=== PATIENT | male | born 1955 | race Caucasian/White ===

== ENCOUNTER 2018-05-04 07:04 | Inpatient (IN) ==
[2018-05-04 07:10] VITALS: BMI 31.5
--- NOTE | 2018-05-04 07:43 | DR.ABDMALE ---
HPI - Time seen Time seen: 07:45 - PCP Primary Care Physician: NFD - Complaint Chief Complaint:: PT C/O INTERMITTANT LEFT GROIN PAIN AND PT THINKS IT MAY BE HIS ULCER, PT C/O N/V TIMES 3 IN 24 HOURS NO BLOOD NOTED ,,BR PT DENIES FEVER AND C/O CHILLS,,, BR Self Treatment fo Chief Complaint: NEXIUM - Reviewed Nurses Notes Review: Yes - Mode of arrival Mode of Arrival: Ambulatory - Timing Onset of Chief Complaint: 05/03/18 Came on: Suddenly - Duration Duration: Constant Duration: Hours - Location Location: [facility] - Severity Severity: Moderate - Quality Quality: Sharp - Context Onset: Suddenly History of: None - Modifying factors Worsening Factors: Nothing Improving Factors: Nothing - Associated signs and symptoms Associated Signs and Symptoms: Nausea, Vomiting <TOBIAS SIDHU - Last Filed: 05/04/18 07:59> PMH - PMH Past Medical History: No Past Surgical History: No Surgical History: OTH - Family History History of Family Medical Conditions: No Family Medical History: Diabetes Mellitus - Social History Does patient currently use any type of tobacco product: Yes Have you used tobacco products in the last 12 months: Yes Type of Tobacco Use: Cigarettes How many years tobacco product used: 55 Does any household member use tobacco: No Alcohol Use: None Do you use any recreational Drugs:: No Lives With: Mom Lives Where: Home - infectious screening In the last 2 months have you had wt loss of >10#?: NO Have you had fever, night sweats or hemotysis?: No Have you traveled outside the country in the last 6 months?: No Isolation: Standard <TOBIAS SIDHU - Last Filed: 05/04/18 07:59> ROS - Review of Systems Constitutional: No Symptoms Reported Eyes: No Symptoms Reported ENTM: No Symptoms Reported Respiratoy: No Symptoms Reported Cardiovascular: No Symptoms Reported Gastrointestinal/Abdominal: Abdominal Pain, Nausea, Vomiting. negative: Constipation, Diarrhea Genitourinary: No Symptoms Reported. negative: Dysuria, Frequency, Hematuria Neurological: No Symptoms Reported Musculoskeletal: No Symptoms Reported Integumentary: No Symptoms Reported Hematologic/Lymphatic: No Symptoms Reported Endocrine: No Symptoms Reported All Other Systems: Reviewed and Negative <TOBIAS SIDHU - Last Filed: 05/04/18 07:59> PE - General Limitations: No Limitations General Appearance: Alert - Head Head Exam: Normal Inspection - Eyes Eye exam: Normal Appearance - ENT ENT Exam: Normal External Ear Exam - Neck Neck Exam: Trachea Midline - Chest Chest Inspection: Symmetric Chest Wall Rise - Respiratory Respiratory Exam: Normal Lung Sounds Bilat Respiratory Exam: Bilateral Clear to Auscultation - Cardiovascular Cardiovascular Exam: Regular Rate, Normal Rhythm, Normal Heart Sounds - Abdominal Exam Abdominal Exam: Normal Bowel Sounds, Soft, Tenderness Abdominal Tenderness: LLQ, Moderate - Rectal Rectal Exam: Deferred - Back Back Exam: Normal Inspection - Extremeties Extremities Exam: Normal Inspection - Exam: Male: Normal Inspection - Neurologic Neurological Exam: Alert, Oriented X3. negative: CN II-XII Intact, Motor Sensory Deficit - Psychiatric Psychiatric Exam: Normal Affect, Normal Mood - Skin Skin Exam: Normal Color <TOBIAS SIDHU - Last Filed: 05/04/18 07:59> - Vital Signs Vital Signs: Temp Pulse Resp BP Pulse Ox 05/04/18 07:06 96.9 F L 120 H 20 182/84 94 L 11/29/12 21:36 166/89 MDM - Additional Information Obtained From Additional information provided by: Family - Differential Diagnosis Differential Diagnosis: Constipation, Diverticular disease, Gastritus/PUD, Hernia, Pancreatitis, Urinary tract infection, Urolithiasis <TOBIAS SIDHU - Last Filed: 05/04/18 07:59> Course - Treatment Treatment: SEE ORDERS. <TOBIAS SIDHU - Last Filed: 05/04/18 07:59> - Consultation Called: 09:10 (Dr Krishnamurthy admitted) <ARIANNA BUSTILLOS - Last Filed: 05/04/18 09:14> ROR - Labs Reviewed Result Diagrams: 05/04/18 08:07 05/04/18 08:07 <ARIANNA BUSTILLOS - Last Filed: 05/04/18 09:14> - Labs Reviewed Laboratory: WBC 11.8 X10^3/uL (3.6-10.0) H 05/04/18 08:07 RBC 5.13 X10^6/uL (4.7-6.0) 05/04/18 08:07 Hgb 14.2 g/dL (13.5-18.0) 05/04/18 08:07 Hct 41.8 % (42.0-54.0) L 05/04/18 08:07 MCV 81.6 fL (80.0-100.0) 05/04/18 08:07 MCH 27.7 pg (27.0-34.0) 05/04/18 08:07 MCHC 34.0 g/dL (33.0-35.0) 05/04/18 08:07 RDW 14.5 % (11.6-16.5) 05/04/18 08:07 Plt Count 229 X10^3/uL (150.0-450.0) 05/04/18 08:07 Plt Count Comment Adequate (ADEQUATE) 05/04/18 08:07 MPV 7.7 fL (7.4-11.0) 05/04/18 08:07 Neut % (Auto) 95.3 % (42.0-75.0) H 05/04/18 08:07 Lymph % (Auto) 2.7 % (21.0-51.0) L 05/04/18 08:07 [place] % (Auto) 1.7 % (0.0-13.0) 05/04/18 08:07 Eos % (Auto) 0.2 % (0.9-2.9) L 05/04/18 08:07 Baso % (Auto) 0.1 % (0.2-1.0) L 05/04/18 08:07 Neut # (Auto) 11.2 x10^3/uL (2.2-4.8) H 05/04/18 08:07 Lymph # (Auto) 0.3 X10^3/uL (1.3-2.9) L 05/04/18 08:07 [place] # (Auto) 0.2 x10^3/uL (0.3-0.8) L 05/04/18 08:07 Eos # (Auto) 0.0 x10^3/uL (0.0-0.2) 05/04/18 08:07 Baso # (Auto) 0.0 X10^3/uL (0.0-0.1) 05/04/18 08:07 Absolute Nucleated RBC 0.0 /100WBC 05/04/18 08:07 Total Counted 100 05/04/18 08:07 Neutrophils % (Manual) 84 % (39-76) H 05/04/18 08:07 Band Neutrophils % 7 % (0-10) 05/04/18 08:07 Lymphocytes % (Manual) 3 % (13-43) L 05/04/18 08:07 Monocytes % (Manual) 6 % (4-9) 05/04/18 08:07 Plt Morphology Comment Normal (NORMAL) 05/04/18 08:07 RBC Morphology Normal (NORMAL) 05/04/18 08:07 Sodium 135 mmol/L (136-145) L 05/04/18 08:07 Corrected Sodium 136 mmol/L (136-145) 05/04/18 08:07 Potassium 3.8 mmol/L (3.5-5.1) 05/04/18 08:07 Chloride 100 mmol/L (98-107) 05/04/18 08:07 Carbon Dioxide 23.5 mmol/L (21-32) 05/04/18 08:07 BUN 8 mg/dL (7-18) 05/04/18 08:07 Creatinine 1.47 mg/dL (0.70-1.30) H 05/04/18 08:07 Est GFR (MDRD) Af Amer > 60 (>60) 05/04/18 08:07 Est GFR (MDRD) Non-Af 51 (>60) L 05/04/18 08:07 Glucose 125 mg/dL (65-99) H 05/04/18 08:07 Calcium 9.0 mg/dL (8.5-10.1) 05/04/18 08:07 Corrected Calcium TNP 05/04/18 08:07 Total Bilirubin 0.40 mg/dL (0.2-1.0) 05/04/18 08:07 AST 22 Units/L (15-37) 05/04/18 08:07 ALT 18 Units/L (12-78) 05/04/18 08:07 Alkaline Phosphatase 93 Units/L (46-116) 05/04/18 08:07 Total Protein 7.4 g/dL (6.4-8.2) 05/04/18 08:07 Albumin 3.6 g/dL (3.4-5.0) 05/04/18 08:07 Globulin 3.8 g/dL (2.5-4.5) 05/04/18 08:07 Albumin/Globulin Ratio 0.9 Ratio (1.1-2.1) L 05/04/18 08:07 Amylase 32 Units/L (25-115) 05/04/18 08:07 Lipase 101 Units/L (73-393) 05/04/18 08:07 Specimen Type Random urine 05/04/18 08:02 Urine Color Yellow (YELLOW) 05/04/18 08:02 Urine Appearance Slightly hazy (CLEAR) 05/04/18 08:02 Urine pH 5.0 (5.0 - 8.0) 05/04/18 08:02 Ur Specific [place] 1.020 (1.000-1.030) 05/04/18 08:02 Urine Protein 2+ (NEGATIVE) 05/04/18 08:02 Urine Glucose (UA) Negative (NEGATIVE) 05/04/18 08:02 Urine Ketones Negative (NEGATIVE) 05/04/18 08:02 Urine Occult Blood 2+ (NEGATIVE) 05/04/18 08:02 Urine Nitrite Negative (NEGATIVE) 05/04/18 08:02 Urine Bilirubin Negative (NEGATIVE) 05/04/18 08:02 Urine Urobilinogen Normal (NORMAL) 05/04/18 08:02 Ur Leukocyte Esterase 1+ (NEGATIVE) 05/04/18 08:02 Urine RBC 0-2 /HPF (NONE SEEN) 05/04/18 08:02 Urine WBC 0-2 /HPF (NONE SEEN) 05/04/18 08:02 Ur Squamous Epith Cells Rare /HPF (NEGATIVE) 05/04/18 08:02 Urine Bacteria Trace /HPF (NEGATIVE) 05/04/18 08:02 Urine Mucus Few /HPF (NEGATIVE) 05/04/18 08:02 Ur Culture Indicated? No/not indicated 05/04/18 08:02 <TOBIAS SIDHU - Last Filed: 05/04/18 07:59> <ARIANNA BUSTILLOS - Last Filed: 05/04/18 09:14> - Diagnosis Discharge Problem: Diverticulitis large intestine Qualifiers: Diverticulitis bleeding: without bleeding Diverticulitis complication: without perforation or abscess Qualified Code(s): K57.32 - Diverticulitis of large intestine without perforation or abscess without bleeding - Discharge Plan Disposition: ADMITTED INPATIENT Condition: Stable - Follow ups/Referrals Follow ups/Referrals: NFD,None [Primary Care Provider] - 3 days - Instructions
[2018-05-04 08:14] LABS: BILIRUBIN,URINE NEGATIVE (NEGATIVE); BLOOD/HEMOGLOBIN,URINE 2+ (NEGATIVE); GLUCOSE, URINE NEGATIVE (NEGATIVE); KETONES,URINE NEGATIVE (NEGATIVE); LEUKOCYTE ESTERASE ,URINE 1+ (NEGATIVE); NITRITES,URINE NEGATIVE (NEGATIVE); PROTEIN,URINE 2+ (NEGATIVE); UROBILINOGEN,URINE NORMAL (NORMAL)
[2018-05-04 08:16] LABS: APPEARANCE,URINE SLIGHTLY HAZY (CLEAR); COLOR,URINE YELLOW (YELLOW)
[2018-05-04 08:20] LABS: BACTERIA,URINE TRACE /HPF (NEGATIVE); RBC,URINE 0-2 /HPF (NONE SEEN); SQUAMOUS EPITHELIAL CELL,UR RARE /HPF (NEGATIVE)
[2018-05-04 08:21] LABS: MUCUS,URINE FEW /HPF (NEGATIVE)
[2018-05-04 08:21] LABS: BASOPHILS % (AUTO) 0.1 % (0.2-1.0); EOSINOPHILS % (AUTO) 0.2 % (0.9-2.9); HEMATOCRIT 41.8 % (42.0-54.0); HEMOGLOBIN 14.2 g/dL (13.5-18.0); LYMPHOCYTES # (AUTO) 0.3 X10^3/uL (1.3-2.9); LYMPHOCYTES % (AUTO) 2.7 % (21.0-51.0); MEAN CORPUSCULAR HEMOGLOBIN 27.7 pg (27.0-34.0); MEAN CORPUSCULAR VOLUME 81.6 fL (80.0-100.0); MEAN PLATELET VOLUME 7.7 fL (7.4-11.0); MONOCYTES # (AUTO) 0.2 x10^3/uL (0.3-0.8); MONOCYTES % (AUTO) 1.7 % (0.0-13.0); NEUTROPHILS # (AUTO) 11.2 x10^3/uL (2.2-4.8); NEUTROPHILS % (AUTO) 95.3 % (42.0-75.0); PLATELET COUNT 229 X10^3/uL (150.0-450.0); RED BLOOD COUNT 5.13 X10^6/uL (4.7-6.0); RED CELL DISTRIBUTION WIDTH 14.5 % (11.6-16.5); WHITE BLOOD COUNT 11.8 X10^3/uL (3.6-10.0)
[2018-05-04 08:32] LABS: BAND NEUTROPHILS % 7 % (0-10); PLATELET MORPHOLOGY COMMENT NORMAL (NORMAL)
[2018-05-04 08:35] LABS: ALANINE AMINOTRANSFERASE 18 Units/L (12-78); ALBUMIN 3.6 g/dL (3.4-5.0); ALKALINE PHOSPHATASE 93 Units/L (46-116); AMYLASE 32 Units/L (25-115); ASPARTATE AMINO TRANSFERASE 22 Units/L (15-37); BLOOD UREA NITROGEN 8 mg/dL (7-18); CARBON DIOXIDE 23.5 mmol/L (21-32); CHLORIDE 100 mmol/L (98-107); COR NA(FOR HYPERGLY) 136 mmol/L (136-145); CREATININE 1.47 mg/dL (0.70-1.30); LIPASE 101 Units/L (73-393); SODIUM 135 mmol/L (136-145); TOTAL PROTEIN 7.4 g/dL (6.4-8.2); eGFR NON BLACK RACES 51 (>60)
--- NOTE | 2018-05-04 08:54 | CT ---
HISTORY: Left-sided abdominal pain; vomiting; chills Study: CT abdomen and pelvis without IV or oral contrast Comparison: No priors Technique: Multiple axial images of the abdomen and pelvis were obtained from the lung bases to the pubic symphy sis without the administration of IV or oral contrast. Coronal and sagittal images are also reviewed . Dose reduction techniques utilized automatic exposure control. Findings: The visualized portions of the lung bases are unremarkable. There are right and left coronary artery calcifications. The liver, spleen, kidneys, and adrenal glands are unremarkable in their CT appearan ce. Punctate calcifications are present throughout the pancreas. No evidence of pancreatic mass or du ctal ectasia is seen. Findings may represent chronic calcific pancreatitis. The gallbladder is unrema rkable in its CT appearance. No significant mesenteric lymphadenopathy or stranding can be observed. No free fluid or free air is seen within the abdomen. No bowel wall thickening or bowel dilatation is present. Appendix is normal. There is pericolonic fat reticulation present in a region of diverti culum formation at the left junction of the descending and sigmoid colon. This has the appearance of mild but active diverticulitis. No evidence of fluid collection, abscess or perforation or obstructio n is seen.. The urinary bladder is grossly unremarkable. Severe multilevel degenerative disc disease is present involving the lumbar spine with disc space narrowing, vacuum disc, marginal spondylosis a nd bony endplate sclerosis. IMPRESSION: Mild but active appearing diverticulitis at the junction of the descending colon and sigmoid. No obst ruction, perforation, fluid collection or abscess is seen. Reported By:
[2018-05-04] MEDS ORDERED: NS 1000 ML 1,000 ML ONE (09:20)
[2018-05-04] MEDS ORDERED: NS 100 ML IV 100 ML IV ONE (09:22)
[2018-05-04] MEDS ORDERED: ZOSYN VIAL 3.375 GRAMS IV ONE (09:22)
[2018-05-04] MEDS ORDERED: NS 1000 ML 1,000 ML IV ONE (09:35)
[2018-05-04] MEDS ORDERED: ZOFRAN INJ 4 MG VIAL IVP PRN (09:38)
[2018-05-04] MEDS: ZOSYN VIAL 3.375 GRAMS 3.375 G in NS 100 ML IV + SPIKE MINIBAG* 100 ML IV SCH ×3 (09:53→20:43)
[2018-05-04] MEDS: NS 1000 ML 1,000 ML with POTASSIUM CHLORIDE INJ 30 MEQ VIAL 30 MEQ IV SCH ×4 (11:40→17:59)
[2018-05-04] MEDS: DEMEROL INJ IVP PRN (20:50)
[2018-05-04 22:23] LABS: BILIRUBIN,URINE NEGATIVE (NEGATIVE); BLOOD/HEMOGLOBIN,URINE 2+ (NEGATIVE); GLUCOSE, URINE NEGATIVE (NEGATIVE); KETONES,URINE NEGATIVE (NEGATIVE); LEUKOCYTE ESTERASE ,URINE NEGATIVE (NEGATIVE); NITRITES,URINE NEGATIVE (NEGATIVE); PROTEIN,URINE NEGATIVE (NEGATIVE); UROBILINOGEN,URINE NORMAL (NORMAL)
[2018-05-04 22:34] LABS: APPEARANCE,URINE CLEAR (CLEAR); BACTERIA,URINE NEGATIVE /HPF (NEGATIVE); COLOR,URINE YELLOW (YELLOW); RBC,URINE 0-2 /HPF (NONE SEEN); SQUAMOUS EPITHELIAL CELL,UR FEW /HPF (NEGATIVE)
[2018-05-05] MEDS: ZOSYN VIAL 3.375 GRAMS 3.375 G in NS 100 ML IV + SPIKE MINIBAG* 100 ML IV SCH ×4 (03:47→22:45)
[2018-05-05] MEDS: NS 1000 ML 1,000 ML with POTASSIUM CHLORIDE INJ 30 MEQ VIAL 30 MEQ IV SCH ×4 (03:48→10:47)
[2018-05-05] MEDS: DEMEROL INJ IVP PRN ×3 (03:48→18:44)
[2018-05-05 06:38] LABS: BASOPHILS % (AUTO) 0.4 % (0.2-1.0); EOSINOPHILS # (AUTO) 0.3 x10^3/uL (0.0-0.2); EOSINOPHILS % (AUTO) 2.9 % (0.9-2.9); HEMATOCRIT 35.7 % (42.0-54.0); HEMOGLOBIN 12.2 g/dL (13.5-18.0); LYMPHOCYTES # (AUTO) 0.7 X10^3/uL (1.3-2.9); MEAN CORPUSCULAR HGB CONC 34.2 g/dL (33.0-35.0); MEAN CORPUSCULAR VOLUME 81.9 fL (80.0-100.0); MEAN PLATELET VOLUME 8.1 fL (7.4-11.0); MONOCYTES # (AUTO) 0.6 x10^3/uL (0.3-0.8); MONOCYTES % (AUTO) 6.2 % (0.0-13.0); NEUTROPHILS # (AUTO) 8.7 x10^3/uL (2.2-4.8); NEUTROPHILS % (AUTO) 83.5 % (42.0-75.0); PLATELET COUNT 173 X10^3/uL (150.0-450.0); RED BLOOD COUNT 4.35 X10^6/uL (4.7-6.0); RED CELL DISTRIBUTION WIDTH 14.9 % (11.6-16.5); WHITE BLOOD COUNT 10.4 X10^3/uL (3.6-10.0)
[2018-05-05 07:05] LABS: ALANINE AMINOTRANSFERASE 21 Units/L (12-78); ALBUMIN 2.8 g/dL (3.4-5.0); ALKALINE PHOSPHATASE 67 Units/L (46-116); ASPARTATE AMINO TRANSFERASE 22 Units/L (15-37); BLOOD UREA NITROGEN 12 mg/dL (7-18); CALCIUM 8.1 mg/dL (8.5-10.1); CARBON DIOXIDE 23.8 mmol/L (21-32); CHLORIDE 107 mmol/L (98-107); COR CA(FOR HYPOALB) 9.1 mg/dL (8.5-10.1); CREATININE 1.22 mg/dL (0.70-1.30); SODIUM 139 mmol/L (136-145); TOTAL PROTEIN 6.3 g/dL (6.4-8.2); eGFR NON BLACK RACES > 60 (>60)
[2018-05-05] MEDS: CHECK PATCH XX SCH ×2 (09:54→21:00)
[2018-05-05] MEDS: NICOTINE PATCH TD SCH (09:54)
[2018-05-05] MEDS ORDERED: NS 1000 ML 1,000 ML ONE (11:50)
[2018-05-05] MEDS ORDERED: LIBRIUM PO PRN (13:39)
--- NOTE | 2018-05-05 13:48 | DR.H&P ---
H&P - History & Physical for Day of: H&P Date: 05/04/18 - Chief Complaint Chief Complaint: ABDOMINAL PAIN, N/V, CHILLS - History of Present Illness History of Present Illness: 63 WM ER ADMISSION WITH ACUTE ABDOMINAL PAIN, NV AND CHILLS. PT CT ABD PELVIS REVEALED ACUTE DIVERTICULITIS, WITH ELEVATED WBC ON ADMISSION. PT DENIES ANY PMH NO DM OR HTN OR CAD. PT IS PACK PER DAY SMOKER, PT ADMITTED FOR IV ABTX, PAIN AND NAUSEA CONTROL - Past Medical History Past Medical History: COPD - Past Surgical History Surgical History: Other - Family History Family Medical History: Diabetes Mellitus - Social History Does patient currently use any type of tobacco product: Yes Have you used tobacco products in the last 12 months: Yes Type of Tobacco Use: Cigarettes How many years tobacco product used: 48 Does any household member use tobacco: No Alcohol Use: None Drug Use: None - Medications Home Medications: codeine Allergy (Verified 05/04/18 07:06) CONTINUE taking the following medications NK 05/04/18 [History] - Review of Systems Constitutional: Chills ENT: No Symptoms Reported Respiratory: Wheezing Cardiovascular: No Symptoms Reported Gastrointestinal: Nausea, Vomiting, Abdominal Pain Musculoskeletal: Back Pain Skin: No Symptoms Reported Neurological: No Symptoms Reported - Physical Exam Vital Signs: Temperature 98.6 F Pulse Rate [Right Brachial] 76 Pulse Rate [Left Radial] 82 Pulse Rate 120 Respiratory Rate 20 Blood Pressure [Right Arm] 112/67 Blood Pressure [Left Arm] 93/49 Blood Pressure 182/84 O2 Sat by Pulse Oximetry 96 Oriented: Normal Eyes: Normal Ear: Normal Nose: Normal Throat: Normal Respiratory: RLL Diminished, LLL Diminished Cardiovascular: Normal : Normal Auscultation: Bowel Sounds: Increased Palpation: Normal Tenderness: LUQ, LLQ Skin: Decreased [place] Musculoskeletal: Normal Psychiatric: Normal Mood Description: Calm Affect: Angry Speech Pattern: Clear - Assessment/Plan (1) Diverticulitis large intestine Qualifiers: Diverticulitis bleeding: without bleeding Diverticulitis complication: without perforation or abscess Qualified Code(s): K57.32 - Diverticulitis of large intestine without perforation or abscess without bleeding Status: Acute Plan: ADMIT, IV ATBX. ADMISSION LABS CBC CMP AMYLASE AND LIPASE. AM CXR. VERIFY HOME MEDS. NPO, PAIN AND NAUSEA CONTROL - Allergies Allergies/Adverse Reactions: Allergies Allergy/AdvReac Type Severity Reaction Status Date / Time codeine Allergy Verified 05/04/18 07:06
--- NOTE | 2018-05-05 13:51 | PCM.PROG ---
Progress Note - Progress Note for Day of Date of Exam: 05/05/18 - Subjective Subjective: 63 WM ER ADMISSION WITH ACUTE DIVERTICULITIS, CURRENTLY ON IV ZOSYN , ADDING FLAGYL, PT CO PAIN THIS AM. LLQ TENDER. STOOL STUDIES, CXR FOR EXP WHEEZING ON EXAM. - Past Medical Family Social History Past Med/Fam/Surg Hx: No changes since H&P Allergies: Allergies codeine Allergy (Verified 05/04/18 07:06) - Review of Systems ROS: No change since H&P - Vital Signs and I&O's Vital Signs: Temperature 98.6 F Pulse Rate [Right Brachial] 76 Pulse Rate [Left Radial] 82 Pulse Rate 120 Respiratory Rate 20 Blood Pressure [Right Arm] 112/67 Blood Pressure [Left Arm] 93/49 Blood Pressure 182/84 O2 Sat by Pulse Oximetry 96 Intake and Output: Intake & Output 05/03/18 05/04/18 05/05/18 05/06/18 11:59 11:59 11:59 11:59 Intake Total 1000 / 1000 Output Total 650 / 650 Balance 350 / 350 - Physical Exam Oriented: Normal Eyes: Normal Ear: Normal Nose: Normal Throat: Normal Respiratory: Diminished, Wheezes Cardiovascular: Normal : Normal Auscultation: Bowel Sounds: Increased Tenderness: LUQ, LLQ Skin: Decreased [place]urgur Musculoskeletal: Normal Psychiatric: Normal Mood Description: Calm Affect: Angry Speech Pattern: Clear - Laboratory and Diagnostics Result Diagrams: 05/05/18 05:20 05/05/18 05:20 Labs: Laboratory WBC 10.4 X10^3/uL (3.6-10.0) H 05/05/18 05:20 RBC 4.35 X10^6/uL (4.7-6.0) L 05/05/18 05:20 Hgb 12.2 g/dL (13.5-18.0) L D 05/05/18 05:20 Hct 35.7 % (42.0-54.0) L 05/05/18 05:20 MCV 81.9 fL (80.0-100.0) 05/05/18 05:20 MCH 28.0 pg (27.0-34.0) 05/05/18 05:20 MCHC 34.2 g/dL (33.0-35.0) 05/05/18 05:20 RDW 14.9 % (11.6-16.5) 05/05/18 05:20 Plt Count 173 X10^3/uL (150.0-450.0) 05/05/18 05:20 Plt Count Comment Adequate (ADEQUATE) 05/04/18 08:07 MPV 8.1 fL (7.4-11.0) 05/05/18 05:20 Neut % (Auto) 83.5 % (42.0-75.0) H 05/05/18 05:20 Lymph % (Auto) 7.0 % (21.0-51.0) L 05/05/18 05:20 [place] % (Auto) 6.2 % (0.0-13.0) 05/05/18 05:20 Eos % (Auto) 2.9 % (0.9-2.9) 05/05/18 05:20 Baso % (Auto) 0.4 % (0.2-1.0) 05/05/18 05:20 Neut # (Auto) 8.7 x10^3/uL (2.2-4.8) H 05/05/18 05:20 Lymph # (Auto) 0.7 X10^3/uL (1.3-2.9) L 05/05/18 05:20 [place] # (Auto) 0.6 x10^3/uL (0.3-0.8) 05/05/18 05:20 Eos # (Auto) 0.3 x10^3/uL (0.0-0.2) H 05/05/18 05:20 Baso # (Auto) 0.0 X10^3/uL (0.0-0.1) 05/05/18 05:20 Absolute Nucleated RBC 0.1 /100WBC 05/05/18 05:20 Total Counted 100 05/04/18 08:07 Neutrophils % (Manual) 84 % (39-76) H 05/04/18 08:07 Band Neutrophils % 7 % (0-10) 05/04/18 08:07 Lymphocytes % (Manual) 3 % (13-43) L 05/04/18 08:07 Monocytes % (Manual) 6 % (4-9) 05/04/18 08:07 Plt Morphology Comment Normal (NORMAL) 05/04/18 08:07 RBC Morphology Normal (NORMAL) 05/04/18 08:07 Sodium 139 mmol/L (136-145) 05/05/18 05:20 Corrected Sodium TNP 05/05/18 05:20 Potassium 4.0 mmol/L (3.5-5.1) 05/05/18 05:20 Chloride 107 mmol/L (98-107) 05/05/18 05:20 Carbon Dioxide 23.8 mmol/L (21-32) 05/05/18 05:20 BUN 12 mg/dL (7-18) 05/05/18 05:20 Creatinine 1.22 mg/dL (0.70-1.30) 05/05/18 05:20 Est GFR (MDRD) Af Amer > 60 (>60) 05/05/18 05:20 Est GFR (MDRD) Non-Af > 60 (>60) 05/05/18 05:20 Glucose 107 mg/dL (65-99) H 05/05/18 05:20 Calcium 8.1 mg/dL (8.5-10.1) L 05/05/18 05:20 Corrected Calcium 9.1 mg/dL (8.5-10.1) 05/05/18 05:20 Total Bilirubin 0.60 mg/dL (0.2-1.0) 05/05/18 05:20 AST 22 Units/L (15-37) 05/05/18 05:20 ALT 21 Units/L (12-78) 05/05/18 05:20 Alkaline Phosphatase 67 Units/L (46-116) 05/05/18 05:20 Total Protein 6.3 g/dL (6.4-8.2) L 05/05/18 05:20 Albumin 2.8 g/dL (3.4-5.0) L 05/05/18 05:20 Globulin 3.5 g/dL (2.5-4.5) 05/05/18 05:20 Albumin/Globulin Ratio 0.8 Ratio (1.1-2.1) L 05/05/18 05:20 Amylase 32 Units/L (25-115) 05/04/18 08:07 Lipase 101 Units/L (73-393) 05/04/18 08:07 Specimen Type Random urine 05/04/18 22:15 Urine Color Yellow (YELLOW) 05/04/18 22:15 Urine Appearance Clear (CLEAR) 05/04/18 22:15 Urine pH 5.0 (5.0 - 8.0) 05/04/18 22:15 Ur Specific [place] 1.015 (1.000-1.030) 05/04/18 22:15 Urine Protein Negative (NEGATIVE) 05/04/18 22:15 Urine Glucose (UA) Negative (NEGATIVE) 05/04/18 22:15 Urine Ketones Negative (NEGATIVE) 05/04/18 22:15 Urine Occult Blood 2+ (NEGATIVE) 05/04/18 22:15 Urine Nitrite Negative (NEGATIVE) 05/04/18 22:15 Urine Bilirubin Negative (NEGATIVE) 05/04/18 22:15 Urine Urobilinogen Normal (NORMAL) 05/04/18 22:15 Ur Leukocyte Esterase Negative (NEGATIVE) 05/04/18 22:15 Urine RBC 0-2 /HPF (NONE SEEN) 05/04/18 22:15 Urine WBC None seen /HPF (NONE SEEN) 05/04/18 22:15 Ur Squamous Epith Cells Few /HPF (NEGATIVE) 05/04/18 22:15 Urine Bacteria Negative /HPF (NEGATIVE) 05/04/18 22:15 Urine Mucus Few /HPF (NEGATIVE) 05/04/18 08:02 Ur Culture Indicated? No/not indicated 05/04/18 22:15 - Plan (1) Diverticulitis large intestine Status: Acute Qualifiers: Diverticulitis bleeding: without bleeding Diverticulitis complication: without perforation or abscess Qualified Code(s): K57.32 - Diverticulitis of large intestine without perforation or abscess without bleeding Plan: IV ATBX. AM LABS, CXR THIS AM, ADDED FLAGYL AND STOOL STUDIES. VERIFY HOME MEDS. NPO, PAIN AND NAUSEA CONTROL
[2018-05-05] MEDS: FLAGYL IV PREMIX 500 MG BAG 500 MG/100 ML BAG IV SCH ×2 (15:04→20:48)
--- NOTE | 2018-05-05 15:06 | RAD ---
History: Cough Study: Portable upright AP chest Comparison: None Findings: The lungs are clear and the heart and mediastinum are unremarkable. There is no edema or ef fusion or lung consolidation. Impression: No evidence for active cardiopulmonary disease Reported By:
[2018-05-05] MEDS: PROTONIX INJ 40 MG VIAL IVP SCH (15:12)
[2018-05-05] MEDS: NS + KCL 20 MEQ/L 1,000 ML IV SCH (18:33)
[2018-05-06] MEDS: DEMEROL INJ IVP PRN ×4 (01:53→23:50)
[2018-05-06] MEDS: NS + KCL 20 MEQ/L 1,000 ML IV SCH ×4 (01:54→18:41)
[2018-05-06] MEDS: FLAGYL IV PREMIX 500 MG BAG 500 MG/100 ML BAG IV SCH ×4 (04:00→20:43)
--- NOTE | 2018-05-06 06:21 | RAD ---
HISTORY: Left-sided abdominal pain, vomiting and chills. Diverticulitis Study: KUB Comparison: CT scan of the abdomen and pelvis done 05/04/2018. Findings: No evidence of bowel obstruction is seen. There is some thickening of the anderson of the distal descend ing colon in the area of the patient's active diverticulitis. There is no evidence of opaque stone. D egenerative changes present involving the lower lumbar spine. IMPRESSION: Mild wall thickening of the colon in the region of the diverticulitis, the distal descending colon re gion. No obstruction is seen. Reported By:
[2018-05-06 06:28] LABS: BASOPHILS # (AUTO) 0.1 X10^3/uL (0.0-0.1); BASOPHILS % (AUTO) 0.6 % (0.2-1.0); EOSINOPHILS # (AUTO) 0.4 x10^3/uL (0.0-0.2); EOSINOPHILS % (AUTO) 4.2 % (0.9-2.9); HEMATOCRIT 36.1 % (42.0-54.0); HEMOGLOBIN 12.3 g/dL (13.5-18.0); LYMPHOCYTES # (AUTO) 1.2 X10^3/uL (1.3-2.9); LYMPHOCYTES % (AUTO) 12.3 % (21.0-51.0); MEAN CORPUSCULAR HEMOGLOBIN 27.8 pg (27.0-34.0); MEAN CORPUSCULAR HGB CONC 34.1 g/dL (33.0-35.0); MEAN CORPUSCULAR VOLUME 81.5 fL (80.0-100.0); MEAN PLATELET VOLUME 8.1 fL (7.4-11.0); MONOCYTES # (AUTO) 0.7 x10^3/uL (0.3-0.8); MONOCYTES % (AUTO) 7.7 % (0.0-13.0); NEUTROPHILS % (AUTO) 75.2 % (42.0-75.0); PLATELET COUNT 181 X10^3/uL (150.0-450.0); RED BLOOD COUNT 4.43 X10^6/uL (4.7-6.0); RED CELL DISTRIBUTION WIDTH 14.7 % (11.6-16.5); WHITE BLOOD COUNT 9.4 X10^3/uL (3.6-10.0)
[2018-05-06] MEDS: ZOSYN VIAL 3.375 GRAMS 3.375 G in NS 100 ML IV + SPIKE MINIBAG* 100 ML IV SCH ×3 (06:38→21:11)
[2018-05-06 07:08] LABS: ALANINE AMINOTRANSFERASE 18 Units/L (12-78); ALBUMIN 2.8 g/dL (3.4-5.0); ALKALINE PHOSPHATASE 82 Units/L (46-116); ASPARTATE AMINO TRANSFERASE 15 Units/L (15-37); BLOOD UREA NITROGEN 11 mg/dL (7-18); CALCIUM 8.1 mg/dL (8.5-10.1); CARBON DIOXIDE 22.5 mmol/L (21-32); CHLORIDE 103 mmol/L (98-107); COR CA(FOR HYPOALB) 9.1 mg/dL (8.5-10.1); CREATININE 1.19 mg/dL (0.70-1.30); SODIUM 136 mmol/L (136-145); TOTAL PROTEIN 6.6 g/dL (6.4-8.2); eGFR NON BLACK RACES > 60 (>60)
[2018-05-06] MEDS: NICOTINE PATCH TD SCH (09:20)
[2018-05-06] MEDS: CHECK PATCH XX SCH ×2 (09:20→20:43)
[2018-05-06] MEDS: PROTONIX INJ 40 MG VIAL IVP SCH (09:20)
[2018-05-06] MEDS ORDERED: NS 100 ML IV 100 ML IV ONE (14:10)
--- NOTE | 2018-05-06 15:03 | CT ---
CT abdomen and pelvis with contrast Indication: Abdominal pain, diverticulitis Comparison: 05/04/2018 Technique: CT images of the abdomen and pelvis were obtained with IV and oral contrast. Automatic exp osure control was utilized. Findings: There is moderate to advanced lower lumbar spondylosis. No acute osseous abnormality is see n. Mild basilar atelectasis has developed, slightly worse on the left. The liver, gallbladder, spleen, stomach, duodenum, pancreas, adrenals, and kidneys are unremarkable. Scattered colonic diverticula are noted. There is again thickening with adjacent stranding at the ann marie ction of the descending and sigmoid colon. This stranding is mildly worsened, but no discrete collect ion or gross free air is observed. Otherwise, no significant thickening or dilatation of the remainin g lower GI tract. The appendix is normal. Urinary bladder, prostate, and rectum are unremarkable. The re is aortoiliac atherosclerosis, without aneurysm. No free fluid or adenopathy. Impression: Worsened inflammatory stranding from acute diverticulitis at the junction of the descending and sigmo id colon, without evidence for abscess. Mild bibasilar atelectasis. Reported By:
[2018-05-07] MEDS: NS + KCL 20 MEQ/L 1,000 ML IV SCH ×3 (00:56→16:42)
[2018-05-07] MEDS: FLAGYL IV PREMIX 500 MG BAG 500 MG/100 ML BAG IV SCH ×4 (02:50→20:28)
[2018-05-07] MEDS: ZOSYN VIAL 3.375 GRAMS 3.375 G in NS 100 ML IV + SPIKE MINIBAG* 100 ML IV SCH ×3 (05:02→22:36)
[2018-05-07 05:15] LABS: BASOPHILS % (AUTO) 0.5 % (0.2-1.0); EOSINOPHILS # (AUTO) 0.6 x10^3/uL (0.0-0.2); EOSINOPHILS % (AUTO) 6.6 % (0.9-2.9); HEMATOCRIT 39.3 % (42.0-54.0); HEMOGLOBIN 13.5 g/dL (13.5-18.0); LYMPHOCYTES # (AUTO) 1.2 X10^3/uL (1.3-2.9); LYMPHOCYTES % (AUTO) 12.9 % (21.0-51.0); MEAN CORPUSCULAR HEMOGLOBIN 27.9 pg (27.0-34.0); MEAN CORPUSCULAR HGB CONC 34.4 g/dL (33.0-35.0); MEAN CORPUSCULAR VOLUME 81.2 fL (80.0-100.0); MEAN PLATELET VOLUME 8.2 fL (7.4-11.0); MONOCYTES # (AUTO) 0.6 x10^3/uL (0.3-0.8); MONOCYTES % (AUTO) 6.2 % (0.0-13.0); NEUTROPHILS # (AUTO) 6.7 x10^3/uL (2.2-4.8); NEUTROPHILS % (AUTO) 73.8 % (42.0-75.0); PLATELET COUNT 235 X10^3/uL (150.0-450.0); RED BLOOD COUNT 4.84 X10^6/uL (4.7-6.0); RED CELL DISTRIBUTION WIDTH 14.1 % (11.6-16.5); WHITE BLOOD COUNT 9.1 X10^3/uL (3.6-10.0)
[2018-05-07 05:32] LABS: ALANINE AMINOTRANSFERASE 16 Units/L (12-78); ALBUMIN 2.9 g/dL (3.4-5.0); ALKALINE PHOSPHATASE 89 Units/L (46-116); ASPARTATE AMINO TRANSFERASE 17 Units/L (15-37); BLOOD UREA NITROGEN 11 mg/dL (7-18); CALCIUM 8.5 mg/dL (8.5-10.1); CARBON DIOXIDE 23.2 mmol/L (21-32); CHLORIDE 102 mmol/L (98-107); COR CA(FOR HYPOALB) 9.4 mg/dL (8.5-10.1); CREATININE 1.15 mg/dL (0.70-1.30); SODIUM 135 mmol/L (136-145); TOTAL PROTEIN 7.2 g/dL (6.4-8.2); eGFR NON BLACK RACES > 60 (>60)
[2018-05-07] MEDS: PROTONIX INJ 40 MG VIAL IVP SCH (08:37)
[2018-05-07] MEDS: NICOTINE PATCH TD SCH (08:37)
[2018-05-07] MEDS: CHECK PATCH XX SCH ×2 (08:40→20:28)
--- NOTE | 2018-05-07 09:45 | PCM.PROG ---
Progress Note - Progress Note for Day of Date of Exam: 05/06/18 - Subjective Subjective: 63 WM ER ADMISSION WITH ACUTE DIVERTICULITIS, CURRENTLY ON IV ZOSYN , ADDING FLAGYL, PT CO PAIN IMPROVED THIS, BUT CONTINUES LLQ TENDER. STOOL STUDIES. PT NPO FOR REPEAT CT ABD PELVIS WITH CONTRAST THIS AM, CONTINUE NPO - Past Medical Family Social History Past Med/Fam/Surg Hx: No changes since H&P Allergies: Allergies codeine Allergy (Verified 05/04/18 07:06) - Review of Systems ROS: No change since H&P - Vital Signs and I&O's Vital Signs: Temperature 98.4 F Pulse Rate [Right Brachial] 84 Pulse Rate [Left Radial] 82 Pulse Rate 76 Respiratory Rate 20 Blood Pressure [Right Arm] 137/77 Blood Pressure [Left Arm] 115/73 Blood Pressure 182/84 O2 Sat by Pulse Oximetry 96 Intake and Output: Intake & Output 05/04/18 05/05/18 05/06/18 05/07/18 11:59 11:59 11:59 11:59 Intake Total 1000 / 1000 800 / 800 1000 / 1000 Output Total 650 / 650 1050 / 1050 1800 / 1800 Balance 350 / 350 -250 / -250 -800 / -800 - Physical Exam Oriented: Normal Eyes: Normal Ear: Normal Nose: Normal Throat: Normal Respiratory: Diminished, Wheezes Cardiovascular: Normal : Normal Auscultation: Bowel Sounds: Increased Tenderness: LUQ, LLQ Skin: Decreased Turgur Musculoskeletal: Normal Psychiatric: Normal Mood Description: Calm Affect: Angry Speech Pattern: Clear, Appropriate - Laboratory and Diagnostics Result Diagrams: 05/07/18 04:30 05/07/18 04:30 Labs: Laboratory WBC 9.1 X10^3/uL (3.6-10.0) 05/07/18 04:30 RBC 4.84 X10^6/uL (4.7-6.0) 05/07/18 04:30 Hgb 13.5 g/dL (13.5-18.0) 05/07/18 04:30 Hct 39.3 % (42.0-54.0) L 05/07/18 04:30 MCV 81.2 fL (80.0-100.0) 05/07/18 04:30 MCH 27.9 pg (27.0-34.0) 05/07/18 04:30 MCHC 34.4 g/dL (33.0-35.0) 05/07/18 04:30 RDW 14.1 % (11.6-16.5) 05/07/18 04:30 Plt Count 235 X10^3/uL (150.0-450.0) 05/07/18 04:30 Plt Count Comment Adequate (ADEQUATE) 05/04/18 08:07 MPV 8.2 fL (7.4-11.0) 05/07/18 04:30 Neut % (Auto) 73.8 % (42.0-75.0) 05/07/18 04:30 Lymph % (Auto) 12.9 % (21.0-51.0) L 05/07/18 04:30 [place] % (Auto) 6.2 % (0.0-13.0) 05/07/18 04:30 Eos % (Auto) 6.6 % (0.9-2.9) H 05/07/18 04:30 Baso % (Auto) 0.5 % (0.2-1.0) 05/07/18 04:30 Neut # (Auto) 6.7 x10^3/uL (2.2-4.8) H 05/07/18 04:30 Lymph # (Auto) 1.2 X10^3/uL (1.3-2.9) L 05/07/18 04:30 [place] # (Auto) 0.6 x10^3/uL (0.3-0.8) 05/07/18 04:30 Eos # (Auto) 0.6 x10^3/uL (0.0-0.2) H 05/07/18 04:30 Baso # (Auto) 0.0 X10^3/uL (0.0-0.1) 05/07/18 04:30 Absolute Nucleated RBC 0.1 /100WBC 05/07/18 04:30 Total Counted 100 05/04/18 08:07 Neutrophils % (Manual) 84 % (39-76) H 05/04/18 08:07 Band Neutrophils % 7 % (0-10) 05/04/18 08:07 Lymphocytes % (Manual) 3 % (13-43) L 05/04/18 08:07 Monocytes % (Manual) 6 % (4-9) 05/04/18 08:07 Plt Morphology Comment Normal (NORMAL) 05/04/18 08:07 RBC Morphology Normal (NORMAL) 05/04/18 08:07 Sodium 135 mmol/L (136-145) L 05/07/18 04:30 Corrected Sodium TNP 05/07/18 04:30 Potassium 4.0 mmol/L (3.5-5.1) 05/07/18 04:30 Chloride 102 mmol/L (98-107) 05/07/18 04:30 Carbon Dioxide 23.2 mmol/L (21-32) 05/07/18 04:30 BUN 11 mg/dL (7-18) 05/07/18 04:30 Creatinine 1.15 mg/dL (0.70-1.30) 05/07/18 04:30 Est GFR (MDRD) Af Amer > 60 (>60) 05/07/18 04:30 Est GFR (MDRD) Non-Af > 60 (>60) 05/07/18 04:30 Glucose 82 mg/dL (65-99) 05/07/18 04:30 Lactic Acid 0.9 mmol/L (0.4-2.0) 05/05/18 13:56 Calcium 8.5 mg/dL (8.5-10.1) 05/07/18 04:30 Corrected Calcium 9.4 mg/dL (8.5-10.1) 05/07/18 04:30 Total Bilirubin 0.50 mg/dL (0.2-1.0) 05/07/18 04:30 AST 17 Units/L (15-37) 05/07/18 04:30 ALT 16 Units/L (12-78) 05/07/18 04:30 Alkaline Phosphatase 89 Units/L (46-116) 05/07/18 04:30 Total Protein 7.2 g/dL (6.4-8.2) 05/07/18 04:30 Albumin 2.9 g/dL (3.4-5.0) L 05/07/18 04:30 Globulin 4.3 g/dL (2.5-4.5) 05/07/18 04:30 Albumin/Globulin Ratio 0.7 Ratio (1.1-2.1) L 05/07/18 04:30 Amylase 32 Units/L (25-115) 05/04/18 08:07 Lipase 101 Units/L (73-393) 05/04/18 08:07 Specimen Type Random urine 05/04/18 22:15 Urine Color Yellow (YELLOW) 05/04/18 22:15 Urine Appearance Clear (CLEAR) 05/04/18 22:15 Urine pH 5.0 (5.0 - 8.0) 05/04/18 22:15 Ur Specific [place] 1.015 (1.000-1.030) 05/04/18 22:15 Urine Protein Negative (NEGATIVE) 05/04/18 22:15 Urine Glucose (UA) Negative (NEGATIVE) 05/04/18 22:15 Urine Ketones Negative (NEGATIVE) 05/04/18 22:15 Urine Occult Blood 2+ (NEGATIVE) 05/04/18 22:15 Urine Nitrite Negative (NEGATIVE) 05/04/18 22:15 Urine Bilirubin Negative (NEGATIVE) 05/04/18 22:15 Urine Urobilinogen Normal (NORMAL) 05/04/18 22:15 Ur Leukocyte Esterase Negative (NEGATIVE) 05/04/18 22:15 Urine RBC 0-2 /HPF (NONE SEEN) 05/04/18 22:15 Urine WBC None seen /HPF (NONE SEEN) 05/04/18 22:15 Ur Squamous Epith Cells Few /HPF (NEGATIVE) 05/04/18 22:15 Urine Bacteria Negative /HPF (NEGATIVE) 05/04/18 22:15 Urine Mucus Few /HPF (NEGATIVE) 05/04/18 08:02 Ur Culture Indicated? No/not indicated 05/04/18 22:15 Stool Description Fob tube 05/06/18 01:55 Stl Occult Blood (IFOB) Negative (NEGATIVE) 05/06/18 01:55 - Plan (1) Diverticulitis large intestine Status: Acute Qualifiers: Diverticulitis bleeding: without bleeding Diverticulitis complication: without perforation or abscess Qualified Code(s): K57.32 - Diverticulitis of large intestine without perforation or abscess without bleeding Plan: IV ATBX. AM LABS, CXR THIS AM, ADDED FLAGYL AND STOOL STUDIES. VERIFY HOME MEDS. NPO, PAIN AND NAUSEA CONTROL
--- NOTE | 2018-05-07 11:15 | PCM.PROG ---
Progress Note - Progress Note for Day of Date of Exam: 05/07/18 - Subjective Subjective: 63 WM ER ADMISSION WITH ACUTE DIVERTICULITIS, CURRENTLY ON IV ZOSYN , ADDING FLAGYL, PT CO PAIN IMPROVED THIS, BUT CONTINUES LLQ TENDER. STOOL STUDIES. PT NPO FOR REPEAT CT ABD PELVIS WITH CONTRAST THIS APPEARS WORSENING INFLAMMATION, NO ABSCESS FORMATION, CONTINUE WITH ICE CHIPS ONLY, PAIN CONTROL ADD CIPRO AND CONSULT DR PIERRE - Past Medical Family Social History Past Med/Fam/Surg Hx: No changes since H&P Allergies: Allergies codeine Allergy (Verified 05/04/18 07:06) - Review of Systems ROS: No change since H&P - Vital Signs and I&O's Vital Signs: Temperature 98.4 F Pulse Rate [Right Brachial] 84 Pulse Rate [Left Radial] 82 Pulse Rate 76 Respiratory Rate 20 Blood Pressure [Right Arm] 137/77 Blood Pressure [Left Arm] 115/73 Blood Pressure 182/84 O2 Sat by Pulse Oximetry 96 Intake and Output: Intake & Output 05/04/18 05/05/18 05/06/18 05/07/18 11:59 11:59 11:59 11:59 Intake Total 1000 / 1000 800 / 800 1000 / 1000 Output Total 650 / 650 1050 / 1050 1800 / 1800 Balance 350 / 350 -250 / -250 -800 / -800 - Physical Exam Oriented: Normal Eyes: Normal Ear: Normal Nose: Normal Throat: Normal Respiratory: Diminished, Wheezes Cardiovascular: Normal : Normal Auscultation: Bowel Sounds: Increased Tenderness: LUQ, LLQ Skin: Decreased Turgur Musculoskeletal: Normal Psychiatric: Normal Mood Description: Calm Affect: Angry Speech Pattern: Clear, Appropriate - Laboratory and Diagnostics Result Diagrams: 05/07/18 04:30 05/07/18 04:30 Labs: Laboratory WBC 9.1 X10^3/uL (3.6-10.0) 05/07/18 04:30 RBC 4.84 X10^6/uL (4.7-6.0) 05/07/18 04:30 Hgb 13.5 g/dL (13.5-18.0) 05/07/18 04:30 Hct 39.3 % (42.0-54.0) L 05/07/18 04:30 MCV 81.2 fL (80.0-100.0) 05/07/18 04:30 MCH 27.9 pg (27.0-34.0) 05/07/18 04:30 MCHC 34.4 g/dL (33.0-35.0) 05/07/18 04:30 RDW 14.1 % (11.6-16.5) 05/07/18 04:30 Plt Count 235 X10^3/uL (150.0-450.0) 05/07/18 04:30 Plt Count Comment Adequate (ADEQUATE) 05/04/18 08:07 MPV 8.2 fL (7.4-11.0) 05/07/18 04:30 Neut % (Auto) 73.8 % (42.0-75.0) 05/07/18 04:30 Lymph % (Auto) 12.9 % (21.0-51.0) L 05/07/18 04:30 [place] % (Auto) 6.2 % (0.0-13.0) 05/07/18 04:30 Eos % (Auto) 6.6 % (0.9-2.9) H 05/07/18 04:30 Baso % (Auto) 0.5 % (0.2-1.0) 05/07/18 04:30 Neut # (Auto) 6.7 x10^3/uL (2.2-4.8) H 05/07/18 04:30 Lymph # (Auto) 1.2 X10^3/uL (1.3-2.9) L 05/07/18 04:30 [place] # (Auto) 0.6 x10^3/uL (0.3-0.8) 05/07/18 04:30 Eos # (Auto) 0.6 x10^3/uL (0.0-0.2) H 05/07/18 04:30 Baso # (Auto) 0.0 X10^3/uL (0.0-0.1) 05/07/18 04:30 Absolute Nucleated RBC 0.1 /100WBC 05/07/18 04:30 Total Counted 100 05/04/18 08:07 Neutrophils % (Manual) 84 % (39-76) H 05/04/18 08:07 Band Neutrophils % 7 % (0-10) 05/04/18 08:07 Lymphocytes % (Manual) 3 % (13-43) L 05/04/18 08:07 Monocytes % (Manual) 6 % (4-9) 05/04/18 08:07 Plt Morphology Comment Normal (NORMAL) 05/04/18 08:07 RBC Morphology Normal (NORMAL) 05/04/18 08:07 Sodium 135 mmol/L (136-145) L 05/07/18 04:30 Corrected Sodium TNP 05/07/18 04:30 Potassium 4.0 mmol/L (3.5-5.1) 05/07/18 04:30 Chloride 102 mmol/L (98-107) 05/07/18 04:30 Carbon Dioxide 23.2 mmol/L (21-32) 05/07/18 04:30 BUN 11 mg/dL (7-18) 05/07/18 04:30 Creatinine 1.15 mg/dL (0.70-1.30) 05/07/18 04:30 Est GFR (MDRD) Af Amer > 60 (>60) 05/07/18 04:30 Est GFR (MDRD) Non-Af > 60 (>60) 05/07/18 04:30 Glucose 82 mg/dL (65-99) 05/07/18 04:30 Lactic Acid 0.9 mmol/L (0.4-2.0) 05/05/18 13:56 Calcium 8.5 mg/dL (8.5-10.1) 05/07/18 04:30 Corrected Calcium 9.4 mg/dL (8.5-10.1) 05/07/18 04:30 Total Bilirubin 0.50 mg/dL (0.2-1.0) 05/07/18 04:30 AST 17 Units/L (15-37) 05/07/18 04:30 ALT 16 Units/L (12-78) 05/07/18 04:30 Alkaline Phosphatase 89 Units/L (46-116) 05/07/18 04:30 Total Protein 7.2 g/dL (6.4-8.2) 05/07/18 04:30 Albumin 2.9 g/dL (3.4-5.0) L 05/07/18 04:30 Globulin 4.3 g/dL (2.5-4.5) 05/07/18 04:30 Albumin/Globulin Ratio 0.7 Ratio (1.1-2.1) L 05/07/18 04:30 Amylase 32 Units/L (25-115) 05/04/18 08:07 Lipase 101 Units/L (73-393) 05/04/18 08:07 Specimen Type Random urine 05/04/18 22:15 Urine Color Yellow (YELLOW) 05/04/18 22:15 Urine Appearance Clear (CLEAR) 05/04/18 22:15 Urine pH 5.0 (5.0 - 8.0) 05/04/18 22:15 Ur Specific [place] 1.015 (1.000-1.030) 05/04/18 22:15 Urine Protein Negative (NEGATIVE) 05/04/18 22:15 Urine Glucose (UA) Negative (NEGATIVE) 05/04/18 22:15 Urine Ketones Negative (NEGATIVE) 05/04/18 22:15 Urine Occult Blood 2+ (NEGATIVE) 05/04/18 22:15 Urine Nitrite Negative (NEGATIVE) 05/04/18 22:15 Urine Bilirubin Negative (NEGATIVE) 05/04/18 22:15 Urine Urobilinogen Normal (NORMAL) 05/04/18 22:15 Ur Leukocyte Esterase Negative (NEGATIVE) 05/04/18 22:15 Urine RBC 0-2 /HPF (NONE SEEN) 05/04/18 22:15 Urine WBC None seen /HPF (NONE SEEN) 05/04/18 22:15 Ur Squamous Epith Cells Few /HPF (NEGATIVE) 05/04/18 22:15 Urine Bacteria Negative /HPF (NEGATIVE) 05/04/18 22:15 Urine Mucus Few /HPF (NEGATIVE) 05/04/18 08:02 Ur Culture Indicated? No/not indicated 05/04/18 22:15 Stool Description Fob tube 05/06/18 01:55 Stl Occult Blood (IFOB) Negative (NEGATIVE) 05/06/18 01:55 - Plan (1) Diverticulitis large intestine Status: Acute Qualifiers: Diverticulitis bleeding: without bleeding Diverticulitis complication: without perforation or abscess Qualified Code(s): K57.32 - Diverticulitis of large intestine without perforation or abscess without bleeding Plan: IV ATBX. AM LABS, CXR THIS AM, CIPRO, ZOSYN FLAGYL AND STOOL STUDIES. NPO, PAIN AND NAUSEA CONTROL. KUB Q AM
[2018-05-07] MEDS: CIPRO IV 400 MG PREMIX* 400 MG/200 ML IV.SOLN. IV SCH ×2 (11:54→21:31)
[2018-05-07] MEDS: DEMEROL INJ IVP PRN (15:50)
[2018-05-07] MEDS: ARTIFICIAL TEARS DROPS AFFEYE SCH (20:28)
[2018-05-08] MEDS: NS + KCL 20 MEQ/L 1,000 ML IV SCH ×3 (02:12→16:22)
[2018-05-08] MEDS: FLAGYL IV PREMIX 500 MG BAG 500 MG/100 ML BAG IV SCH ×4 (02:12→20:27)
[2018-05-08 05:26] LABS: BASOPHILS # (AUTO) 0.1 X10^3/uL (0.0-0.1); BASOPHILS % (AUTO) 0.7 % (0.2-1.0); EOSINOPHILS # (AUTO) 0.7 x10^3/uL (0.0-0.2); EOSINOPHILS % (AUTO) 9.4 % (0.9-2.9); HEMOGLOBIN 12.8 g/dL (13.5-18.0); LYMPHOCYTES # (AUTO) 1.3 X10^3/uL (1.3-2.9); LYMPHOCYTES % (AUTO) 16.1 % (21.0-51.0); MEAN CORPUSCULAR HEMOGLOBIN 27.8 pg (27.0-34.0); MEAN CORPUSCULAR HGB CONC 34.7 g/dL (33.0-35.0); MEAN CORPUSCULAR VOLUME 80.1 fL (80.0-100.0); MEAN PLATELET VOLUME 8.1 fL (7.4-11.0); MONOCYTES # (AUTO) 0.6 x10^3/uL (0.3-0.8); MONOCYTES % (AUTO) 7.6 % (0.0-13.0); NEUTROPHILS # (AUTO) 5.2 x10^3/uL (2.2-4.8); NEUTROPHILS % (AUTO) 66.2 % (42.0-75.0); PLATELET COUNT 260 X10^3/uL (150.0-450.0); RED BLOOD COUNT 4.62 X10^6/uL (4.7-6.0); RED CELL DISTRIBUTION WIDTH 14.6 % (11.6-16.5); WHITE BLOOD COUNT 7.9 X10^3/uL (3.6-10.0)
[2018-05-08] MEDS: ZOSYN VIAL 3.375 GRAMS 3.375 G in NS 100 ML IV + SPIKE MINIBAG* 100 ML IV SCH ×3 (05:30→22:00)
[2018-05-08 05:45] LABS: ALANINE AMINOTRANSFERASE 15 Units/L (12-78); ALBUMIN 2.7 g/dL (3.4-5.0); ALKALINE PHOSPHATASE 84 Units/L (46-116); ASPARTATE AMINO TRANSFERASE 17 Units/L (15-37); BLOOD UREA NITROGEN 10 mg/dL (7-18); CALCIUM 8.6 mg/dL (8.5-10.1); CHLORIDE 103 mmol/L (98-107); COR CA(FOR HYPOALB) 9.6 mg/dL (8.5-10.1); SODIUM 137 mmol/L (136-145); TOTAL PROTEIN 6.7 g/dL (6.4-8.2); eGFR NON BLACK RACES > 60 (>60)
--- NOTE | 2018-05-08 06:12 | RAD ---
Examination: KUB History: Abdominal pain Comparison reference 05/06/2018 Findings: Intestinal gas pattern is within the normal range. There is no evidence for obstruction, il eus, mass formation or free fluid. No visceral enlargement or pathologic calcification identified. Impression: No acute process demonstrated. Reported By:
[2018-05-08] MEDS: CHECK PATCH XX SCH ×2 (08:06→21:05)
[2018-05-08] MEDS: ARTIFICIAL TEARS DROPS AFFEYE SCH ×4 (08:06→20:27)
[2018-05-08] MEDS: CIPRO IV 400 MG PREMIX* 400 MG/200 ML IV.SOLN. IV SCH ×2 (08:06→21:48)
[2018-05-08] MEDS: PROTONIX INJ 40 MG VIAL IVP SCH (08:08)
[2018-05-08] MEDS: NICOTINE PATCH TD SCH (08:08)
[2018-05-08] MEDS: DEMEROL INJ IVP PRN (15:22)
[2018-05-09] MEDS: NS + KCL 20 MEQ/L 1,000 ML IV SCH ×3 (01:04→17:24)
[2018-05-09] MEDS: FLAGYL IV PREMIX 500 MG BAG 500 MG/100 ML BAG IV SCH ×4 (02:12→20:18)
[2018-05-09] MEDS: ZOSYN VIAL 3.375 GRAMS 3.375 G in NS 100 ML IV + SPIKE MINIBAG* 100 ML IV SCH ×3 (05:24→22:31)
[2018-05-09 05:40] LABS: BASOPHILS # (AUTO) 0.1 X10^3/uL (0.0-0.1); EOSINOPHILS # (AUTO) 0.8 x10^3/uL (0.0-0.2); EOSINOPHILS % (AUTO) 10.5 % (0.9-2.9); HEMATOCRIT 38.4 % (42.0-54.0); HEMOGLOBIN 13.4 g/dL (13.5-18.0); LYMPHOCYTES # (AUTO) 1.6 X10^3/uL (1.3-2.9); LYMPHOCYTES % (AUTO) 19.7 % (21.0-51.0); MEAN CORPUSCULAR HEMOGLOBIN 27.9 pg (27.0-34.0); MEAN CORPUSCULAR HGB CONC 34.9 g/dL (33.0-35.0); MEAN CORPUSCULAR VOLUME 80.1 fL (80.0-100.0); MEAN PLATELET VOLUME 8.1 fL (7.4-11.0); MONOCYTES # (AUTO) 0.6 x10^3/uL (0.3-0.8); MONOCYTES % (AUTO) 7.4 % (0.0-13.0); NEUTROPHILS # (AUTO) 4.9 x10^3/uL (2.2-4.8); NEUTROPHILS % (AUTO) 61.4 % (42.0-75.0); PLATELET COUNT 283 X10^3/uL (150.0-450.0); RED BLOOD COUNT 4.79 X10^6/uL (4.7-6.0); RED CELL DISTRIBUTION WIDTH 14.4 % (11.6-16.5)
[2018-05-09 05:56] LABS: ALANINE AMINOTRANSFERASE 16 Units/L (12-78); ALBUMIN 2.8 g/dL (3.4-5.0); ALKALINE PHOSPHATASE 79 Units/L (46-116); ASPARTATE AMINO TRANSFERASE 18 Units/L (15-37); CALCIUM 8.7 mg/dL (8.5-10.1); CARBON DIOXIDE 23.3 mmol/L (21-32); CHLORIDE 104 mmol/L (98-107); COR CA(FOR HYPOALB) 9.7 mg/dL (8.5-10.1); CREATININE 1.12 mg/dL (0.70-1.30); SODIUM 137 mmol/L (136-145); TOTAL PROTEIN 6.9 g/dL (6.4-8.2); eGFR NON BLACK RACES > 60 (>60)
[2018-05-09 06:05] LABS: BLOOD UREA NITROGEN 10 mg/dL (7-18)
[2018-05-09] MEDS: NICOTINE PATCH TD SCH (09:24)
[2018-05-09] MEDS: PROTONIX INJ 40 MG VIAL IVP SCH (09:24)
[2018-05-09] MEDS: CIPRO IV 400 MG PREMIX* 400 MG/200 ML IV.SOLN. IV SCH ×2 (09:25→20:17)
[2018-05-09] MEDS: ARTIFICIAL TEARS DROPS AFFEYE SCH ×4 (09:25→20:26)
[2018-05-09] MEDS: CHECK PATCH XX SCH ×2 (09:25→20:27)
--- NOTE | 2018-05-09 11:01 | DR.PROGNOT ---
Hospital Progress Notes - Progress Note for Day of: Progress Note Date: 05/09/18 - Chief Complaint Chief Complaint: still C/O LLQ pain with minimal ambulation and local pressure , no nausea or vomiting ,no fever . had soft BM this morning . abdominal Xray showed no obstruction . - Past Medical Family Social History Past Med/Fam/Surg Hx: No changes since H&P Allergies: Allergies codeine Allergy (Verified 05/04/18 07:06) - Review Of Systems ROS: No change since H&P - Vital Signs Vital Signs: Temperature 98 F Pulse Rate [Right Brachial] 77 Pulse Rate [Left Radial] 70 Pulse Rate 76 Respiratory Rate 20 Blood Pressure [Right Arm] 119/74 Blood Pressure [Left Arm] 152/87 Blood Pressure 182/84 O2 Sat by Pulse Oximetry 96 - Physical Exam Oriented: Normal Eyes: Normal Ear: Normal Nose: Normal Throat: Normal Respiratory: Diminished, Wheezes Cardiovascular: Normal : Normal GI:Auscultation: Decreased GI:Palpation: Normal GI: Tenderness: LUQ (soft abdomen with fullness LLQ, very tender and mild rebound , BS : hypoactive ..), LLQ Skin: Decreased Turgur Musculoskeletal: Normal Psychiatric: Normal Mood Description: Calm Affect: Angry Speech Pattern: Clear, Appropriate - Laboratory and Diagnostics Result Diagrams: 05/09/18 04:20 05/09/18 04:20 Labs: Laboratory WBC 8.0 X10^3/uL (3.6-10.0) 05/09/18 04:20 RBC 4.79 X10^6/uL (4.7-6.0) 05/09/18 04:20 Hgb 13.4 g/dL (13.5-18.0) L 05/09/18 04:20 Hct 38.4 % (42.0-54.0) L 05/09/18 04:20 MCV 80.1 fL (80.0-100.0) 05/09/18 04:20 MCH 27.9 pg (27.0-34.0) 05/09/18 04:20 MCHC 34.9 g/dL (33.0-35.0) 05/09/18 04:20 RDW 14.4 % (11.6-16.5) 05/09/18 04:20 Plt Count 283 X10^3/uL (150.0-450.0) 05/09/18 04:20 Plt Count Comment Adequate (ADEQUATE) 05/04/18 08:07 MPV 8.1 fL (7.4-11.0) 05/09/18 04:20 Neut % (Auto) 61.4 % (42.0-75.0) 05/09/18 04:20 Lymph % (Auto) 19.7 % (21.0-51.0) L 05/09/18 04:20 [place] % (Auto) 7.4 % (0.0-13.0) 05/09/18 04:20 Eos % (Auto) 10.5 % (0.9-2.9) H 05/09/18 04:20 Baso % (Auto) 1.0 % (0.2-1.0) 05/09/18 04:20 Neut # (Auto) 4.9 x10^3/uL (2.2-4.8) H 05/09/18 04:20 Lymph # (Auto) 1.6 X10^3/uL (1.3-2.9) 05/09/18 04:20 [place] # (Auto) 0.6 x10^3/uL (0.3-0.8) 05/09/18 04:20 Eos # (Auto) 0.8 x10^3/uL (0.0-0.2) H 05/09/18 04:20 Baso # (Auto) 0.1 X10^3/uL (0.0-0.1) 05/09/18 04:20 Absolute Nucleated RBC 0.0 /100WBC 05/09/18 04:20 Total Counted 100 05/04/18 08:07 Neutrophils % (Manual) 84 % (39-76) H 05/04/18 08:07 Band Neutrophils % 7 % (0-10) 05/04/18 08:07 Lymphocytes % (Manual) 3 % (13-43) L 05/04/18 08:07 Monocytes % (Manual) 6 % (4-9) 05/04/18 08:07 Plt Morphology Comment Normal (NORMAL) 05/04/18 08:07 RBC Morphology Normal (NORMAL) 05/04/18 08:07 Sodium 137 mmol/L (136-145) 05/09/18 04:20 Corrected Sodium TNP 05/09/18 04:20 Potassium 3.9 mmol/L (3.5-5.1) 05/09/18 04:20 Chloride 104 mmol/L (98-107) 05/09/18 04:20 Carbon Dioxide 23.3 mmol/L (21-32) 05/09/18 04:20 BUN 10 mg/dL (7-18) 05/09/18 04:20 Creatinine 1.12 mg/dL (0.70-1.30) 05/09/18 04:20 Est GFR (MDRD) Af Amer > 60 (>60) 05/09/18 04:20 Est GFR (MDRD) Non-Af > 60 (>60) 05/09/18 04:20 Glucose 90 mg/dL (65-99) 05/09/18 04:20 Lactic Acid 0.9 mmol/L (0.4-2.0) 05/05/18 13:56 Calcium 8.7 mg/dL (8.5-10.1) 05/09/18 04:20 Corrected Calcium 9.7 mg/dL (8.5-10.1) 05/09/18 04:20 Total Bilirubin 0.30 mg/dL (0.2-1.0) 05/09/18 04:20 AST 18 Units/L (15-37) 05/09/18 04:20 ALT 16 Units/L (12-78) 05/09/18 04:20 Alkaline Phosphatase 79 Units/L (46-116) 05/09/18 04:20 Total Protein 6.9 g/dL (6.4-8.2) 05/09/18 04:20 Albumin 2.8 g/dL (3.4-5.0) L 05/09/18 04:20 Globulin 4.1 g/dL (2.5-4.5) 05/09/18 04:20 Albumin/Globulin Ratio 0.7 Ratio (1.1-2.1) L 05/09/18 04:20 Amylase 32 Units/L (25-115) 05/04/18 08:07 Lipase 101 Units/L (73-393) 05/04/18 08:07 Specimen Type Random urine 05/04/18 22:15 Urine Color Yellow (YELLOW) 05/04/18 22:15 Urine Appearance Clear (CLEAR) 05/04/18 22:15 Urine pH 5.0 (5.0 - 8.0) 05/04/18 22:15 Ur Specific [place] 1.015 (1.000-1.030) 05/04/18 22:15 Urine Protein Negative (NEGATIVE) 05/04/18 22:15 Urine Glucose (UA) Negative (NEGATIVE) 05/04/18 22:15 Urine Ketones Negative (NEGATIVE) 05/04/18 22:15 Urine Occult Blood 2+ (NEGATIVE) 05/04/18 22:15 Urine Nitrite Negative (NEGATIVE) 05/04/18 22:15 Urine Bilirubin Negative (NEGATIVE) 05/04/18 22:15 Urine Urobilinogen Normal (NORMAL) 05/04/18 22:15 Ur Leukocyte Esterase Negative (NEGATIVE) 05/04/18 22:15 Urine RBC 0-2 /HPF (NONE SEEN) 05/04/18 22:15 Urine WBC None seen /HPF (NONE SEEN) 05/04/18 22:15 Ur Squamous Epith Cells Few /HPF (NEGATIVE) 05/04/18 22:15 Urine Bacteria Negative /HPF (NEGATIVE) 05/04/18 22:15 Urine Mucus Few /HPF (NEGATIVE) 05/04/18 08:02 Ur Culture Indicated? No/not indicated 05/04/18 22:15 Stool Description Fob tube 05/06/18 01:55 Stl Occult Blood (IFOB) Negative (NEGATIVE) 05/06/18 01:55 - Assessment and Plan 1: acute sigmoid diverticulitis , improving with ATB. same plan for now and keep on clear liquid diet . future colonoscopy . - Problem Patient Problems: Patient Problems Diverticulitis large intestine (Acute) K57.32
--- NOTE | 2018-05-09 17:58 | PCM.PROG ---
Progress Note - Progress Note for Day of Date of Exam: 05/08/18 - Subjective Subjective: 63 WM ER ADMISSION WITH ACUTE DIVERTICULITIS, CURRENTLY ON IV ZOSYN , ADDING FLAGYL, PT CO PAIN IMPROVED THIS, BUT CONTINUES LLQ TENDER. STOOL STUDIES. PT NPO FOR REPEAT CT ABD PELVIS WITH CONTRAST THIS APPEARS WORSENING INFLAMMATION, NO ABSCESS FORMATION, CONTINUE WITH ICE CHIPS ONLY, PAIN CONTROL, CIPRO AND CONSULT DR PIERRE - Past Medical Family Social History Past Med/Fam/Surg Hx: No changes since H&P Allergies: Allergies codeine Allergy (Verified 05/04/18 07:06) - Review of Systems ROS: No change since H&P - Vital Signs and I&O's Vital Signs: Temperature 98.1 F Pulse Rate [Right Brachial] 71 Pulse Rate [Left Radial] 70 Pulse Rate 76 Respiratory Rate 20 Blood Pressure [Right Arm] 122/75 Blood Pressure [Left Arm] 152/87 Blood Pressure 182/84 O2 Sat by Pulse Oximetry 96 Intake and Output: Intake & Output 05/07/18 05/08/18 05/09/18 05/10/18 11:59 11:59 11:59 11:59 Intake Total 1000 / 1000 4340 / 4340 4190 / 4190 240 / 240 Output Total 1800 / 1800 3050 / 3050 2000 / 1999 800 / 800 Balance -800 / -800 1290 / 1290 2190 / 2190 -560 / -560 - Physical Exam Oriented: Normal Eyes: Normal Ear: Normal Nose: Normal Throat: Normal Respiratory: Diminished, Wheezes Cardiovascular: Normal : Normal Auscultation: Bowel Sounds: Decreased Tenderness: LUQ (soft abdomen with fullness LLQ, very tender and mild rebound , BS : hypoactive ..), LLQ Skin: Decreased Turgur Musculoskeletal: Normal Psychiatric: Normal Mood Description: Calm Affect: Angry Speech Pattern: Clear, Appropriate - Laboratory and Diagnostics Result Diagrams: 05/09/18 04:20 05/09/18 04:20 Labs: Laboratory WBC 8.0 X10^3/uL (3.6-10.0) 05/09/18 04:20 RBC 4.79 X10^6/uL (4.7-6.0) 05/09/18 04:20 Hgb 13.4 g/dL (13.5-18.0) L 05/09/18 04:20 Hct 38.4 % (42.0-54.0) L 05/09/18 04:20 MCV 80.1 fL (80.0-100.0) 05/09/18 04:20 MCH 27.9 pg (27.0-34.0) 05/09/18 04:20 MCHC 34.9 g/dL (33.0-35.0) 05/09/18 04:20 RDW 14.4 % (11.6-16.5) 05/09/18 04:20 Plt Count 283 X10^3/uL (150.0-450.0) 05/09/18 04:20 Plt Count Comment Adequate (ADEQUATE) 05/04/18 08:07 MPV 8.1 fL (7.4-11.0) 05/09/18 04:20 Neut % (Auto) 61.4 % (42.0-75.0) 05/09/18 04:20 Lymph % (Auto) 19.7 % (21.0-51.0) L 05/09/18 04:20 [place] % (Auto) 7.4 % (0.0-13.0) 05/09/18 04:20 Eos % (Auto) 10.5 % (0.9-2.9) H 05/09/18 04:20 Baso % (Auto) 1.0 % (0.2-1.0) 05/09/18 04:20 Neut # (Auto) 4.9 x10^3/uL (2.2-4.8) H 05/09/18 04:20 Lymph # (Auto) 1.6 X10^3/uL (1.3-2.9) 05/09/18 04:20 [place] # (Auto) 0.6 x10^3/uL (0.3-0.8) 05/09/18 04:20 Eos # (Auto) 0.8 x10^3/uL (0.0-0.2) H 05/09/18 04:20 Baso # (Auto) 0.1 X10^3/uL (0.0-0.1) 05/09/18 04:20 Absolute Nucleated RBC 0.0 /100WBC 05/09/18 04:20 Total Counted 100 05/04/18 08:07 Neutrophils % (Manual) 84 % (39-76) H 05/04/18 08:07 Band Neutrophils % 7 % (0-10) 05/04/18 08:07 Lymphocytes % (Manual) 3 % (13-43) L 05/04/18 08:07 Monocytes % (Manual) 6 % (4-9) 05/04/18 08:07 Plt Morphology Comment Normal (NORMAL) 05/04/18 08:07 RBC Morphology Normal (NORMAL) 05/04/18 08:07 Sodium 137 mmol/L (136-145) 05/09/18 04:20 Corrected Sodium TNP 05/09/18 04:20 Potassium 3.9 mmol/L (3.5-5.1) 05/09/18 04:20 Chloride 104 mmol/L (98-107) 05/09/18 04:20 Carbon Dioxide 23.3 mmol/L (21-32) 05/09/18 04:20 BUN 10 mg/dL (7-18) 05/09/18 04:20 Creatinine 1.12 mg/dL (0.70-1.30) 05/09/18 04:20 Est GFR (MDRD) Af Amer > 60 (>60) 05/09/18 04:20 Est GFR (MDRD) Non-Af > 60 (>60) 05/09/18 04:20 Glucose 90 mg/dL (65-99) 05/09/18 04:20 Lactic Acid 0.9 mmol/L (0.4-2.0) 05/05/18 13:56 Calcium 8.7 mg/dL (8.5-10.1) 05/09/18 04:20 Corrected Calcium 9.7 mg/dL (8.5-10.1) 05/09/18 04:20 Total Bilirubin 0.30 mg/dL (0.2-1.0) 05/09/18 04:20 AST 18 Units/L (15-37) 05/09/18 04:20 ALT 16 Units/L (12-78) 05/09/18 04:20 Alkaline Phosphatase 79 Units/L (46-116) 05/09/18 04:20 Total Protein 6.9 g/dL (6.4-8.2) 05/09/18 04:20 Albumin 2.8 g/dL (3.4-5.0) L 05/09/18 04:20 Globulin 4.1 g/dL (2.5-4.5) 05/09/18 04:20 Albumin/Globulin Ratio 0.7 Ratio (1.1-2.1) L 05/09/18 04:20 Amylase 32 Units/L (25-115) 05/04/18 08:07 Lipase 101 Units/L (73-393) 05/04/18 08:07 Specimen Type Random urine 05/04/18 22:15 Urine Color Yellow (YELLOW) 05/04/18 22:15 Urine Appearance Clear (CLEAR) 05/04/18 22:15 Urine pH 5.0 (5.0 - 8.0) 05/04/18 22:15 Ur Specific [place]ison 1.015 (1.000-1.030) 05/04/18 22:15 Urine Protein Negative (NEGATIVE) 05/04/18 22:15 Urine Glucose (UA) Negative (NEGATIVE) 05/04/18 22:15 Urine Ketones Negative (NEGATIVE) 05/04/18 22:15 Urine Occult Blood 2+ (NEGATIVE) 05/04/18 22:15 Urine Nitrite Negative (NEGATIVE) 05/04/18 22:15 Urine Bilirubin Negative (NEGATIVE) 05/04/18 22:15 Urine Urobilinogen Normal (NORMAL) 05/04/18 22:15 Ur Leukocyte Esterase Negative (NEGATIVE) 05/04/18 22:15 Urine RBC 0-2 /HPF (NONE SEEN) 05/04/18 22:15 Urine WBC None seen /HPF (NONE SEEN) 05/04/18 22:15 Ur Squamous Epith Cells Few /HPF (NEGATIVE) 05/04/18 22:15 Urine Bacteria Negative /HPF (NEGATIVE) 05/04/18 22:15 Urine Mucus Few /HPF (NEGATIVE) 05/04/18 08:02 Ur Culture Indicated? No/not indicated 05/04/18 22:15 Stool Description Fob tube 05/06/18 01:55 Stl Occult Blood (IFOB) Negative (NEGATIVE) 05/06/18 01:55 - Plan (1) Diverticulitis large intestine Status: Acute Qualifiers: Diverticulitis bleeding: without bleeding Diverticulitis complication: without perforation or abscess Qualified Code(s): K57.32 - Diverticulitis of large intestine without perforation or abscess without bleeding Plan: IV ATBX. AM LABS, CXR THIS AM, CIPRO, ZOSYN FLAGYL AND STOOL STUDIES. NPO, PAIN AND NAUSEA CONTROL. KUB Q AM
--- NOTE | 2018-05-09 17:59 | PCM.PROG ---
Progress Note - Progress Note for Day of Date of Exam: 05/09/18 - Subjective Subjective: 63 WM ER ADMISSION WITH ACUTE DIVERTICULITIS, CURRENTLY ON IV ZOSYN , ADDING FLAGYL, PT CO PAIN IMPROVED THIS, BUT CONTINUES LLQ TENDER ON EXAM, PT AMBULATORY WITHOUT ASSISTANCE. STOOL STUDIES. PT NPO FOR REPEAT CT ABD PELVIS WITH CONTRAST THIS APPEARS WORSENING INFLAMMATION, NO ABSCESS FORMATION, CONTINUE WITH ICE CHIPS ONLY, PAIN CONTROL, CIPRO AND CONSULT DR PIERRE - Past Medical Family Social History Past Med/Fam/Surg Hx: No changes since H&P Allergies: Allergies codeine Allergy (Verified 05/04/18 07:06) - Review of Systems ROS: No change since H&P - Vital Signs and I&O's Vital Signs: Temperature 98.1 F Pulse Rate [Right Brachial] 71 Pulse Rate [Left Radial] 70 Pulse Rate 76 Respiratory Rate 20 Blood Pressure [Right Arm] 122/75 Blood Pressure [Left Arm] 152/87 Blood Pressure 182/84 O2 Sat by Pulse Oximetry 96 Intake and Output: Intake & Output 05/07/18 05/08/18 05/09/18 05/10/18 11:59 11:59 11:59 11:59 Intake Total 1000 / 1000 4340 / 4340 4190 / 4190 240 / 240 Output Total 1800 / 1800 3050 / 3050 2000 / 2000 800 / 800 Balance -800 / -800 1290 / 1290 2190 / 2190 -560 / -560 - Physical Exam Oriented: Normal Eyes: Normal Ear: Normal Nose: Normal Throat: Normal Respiratory: Diminished, Wheezes Cardiovascular: Normal : Normal Auscultation: Bowel Sounds: Decreased Tenderness: LUQ (soft abdomen with fullness LLQ, very tender and mild rebound , BS : hypoactive ..), LLQ, Mild Skin: Decreased Turgur Musculoskeletal: Normal Psychiatric: Normal Mood Description: Calm Affect: Angry Speech Pattern: Clear, Appropriate - Laboratory and Diagnostics Result Diagrams: 05/09/18 04:20 05/09/18 04:20 Labs: Laboratory WBC 8.0 X10^3/uL (3.6-10.0) 05/09/18 04:20 RBC 4.79 X10^6/uL (4.7-6.0) 05/09/18 04:20 Hgb 13.4 g/dL (13.5-18.0) L 05/09/18 04:20 Hct 38.4 % (42.0-54.0) L 05/09/18 04:20 MCV 80.1 fL (80.0-100.0) 05/09/18 04:20 MCH 27.9 pg (27.0-34.0) 05/09/18 04:20 MCHC 34.9 g/dL (33.0-35.0) 05/09/18 04:20 RDW 14.4 % (11.6-16.5) 05/09/18 04:20 Plt Count 283 X10^3/uL (150.0-450.0) 05/09/18 04:20 Plt Count Comment Adequate (ADEQUATE) 05/04/18 08:07 MPV 8.1 fL (7.4-11.0) 05/09/18 04:20 Neut % (Auto) 61.4 % (42.0-75.0) 05/09/18 04:20 Lymph % (Auto) 19.7 % (21.0-51.0) L 05/09/18 04:20 [place] % (Auto) 7.4 % (0.0-13.0) 05/09/18 04:20 Eos % (Auto) 10.5 % (0.9-2.9) H 05/09/18 04:20 Baso % (Auto) 1.0 % (0.2-1.0) 05/09/18 04:20 Neut # (Auto) 4.9 x10^3/uL (2.2-4.8) H 05/09/18 04:20 Lymph # (Auto) 1.6 X10^3/uL (1.3-2.9) 05/09/18 04:20 [place] # (Auto) 0.6 x10^3/uL (0.3-0.8) 05/09/18 04:20 Eos # (Auto) 0.8 x10^3/uL (0.0-0.2) H 05/09/18 04:20 Baso # (Auto) 0.1 X10^3/uL (0.0-0.1) 05/09/18 04:20 Absolute Nucleated RBC 0.0 /100WBC 05/09/18 04:20 Total Counted 100 05/04/18 08:07 Neutrophils % (Manual) 84 % (39-76) H 05/04/18 08:07 Band Neutrophils % 7 % (0-10) 05/04/18 08:07 Lymphocytes % (Manual) 3 % (13-43) L 05/04/18 08:07 Monocytes % (Manual) 6 % (4-9) 05/04/18 08:07 Plt Morphology Comment Normal (NORMAL) 05/04/18 08:07 RBC Morphology Normal (NORMAL) 05/04/18 08:07 Sodium 137 mmol/L (136-145) 05/09/18 04:20 Corrected Sodium TNP 05/09/18 04:20 Potassium 3.9 mmol/L (3.5-5.1) 05/09/18 04:20 Chloride 104 mmol/L (98-107) 05/09/18 04:20 Carbon Dioxide 23.3 mmol/L (21-32) 05/09/18 04:20 BUN 10 mg/dL (7-18) 05/09/18 04:20 Creatinine 1.12 mg/dL (0.70-1.30) 05/09/18 04:20 Est GFR (MDRD) Af Amer > 60 (>60) 05/09/18 04:20 Est GFR (MDRD) Non-Af > 60 (>60) 05/09/18 04:20 Glucose 90 mg/dL (65-99) 05/09/18 04:20 Lactic Acid 0.9 mmol/L (0.4-2.0) 05/05/18 13:56 Calcium 8.7 mg/dL (8.5-10.1) 05/09/18 04:20 Corrected Calcium 9.7 mg/dL (8.5-10.1) 05/09/18 04:20 Total Bilirubin 0.30 mg/dL (0.2-1.0) 05/09/18 04:20 AST 18 Units/L (15-37) 05/09/18 04:20 ALT 16 Units/L (12-78) 05/09/18 04:20 Alkaline Phosphatase 79 Units/L (46-116) 05/09/18 04:20 Total Protein 6.9 g/dL (6.4-8.2) 05/09/18 04:20 Albumin 2.8 g/dL (3.4-5.0) L 05/09/18 04:20 Globulin 4.1 g/dL (2.5-4.5) 05/09/18 04:20 Albumin/Globulin Ratio 0.7 Ratio (1.1-2.1) L 05/09/18 04:20 Amylase 32 Units/L (25-115) 05/04/18 08:07 Lipase 101 Units/L (73-393) 05/04/18 08:07 Specimen Type Random urine 05/04/18 22:15 Urine Color Yellow (YELLOW) 05/04/18 22:15 Urine Appearance Clear (CLEAR) 05/04/18 22:15 Urine pH 5.0 (5.0 - 8.0) 05/04/18 22:15 Ur Specific [place] 1.015 (1.000-1.030) 05/04/18 22:15 Urine Protein Negative (NEGATIVE) 05/04/18 22:15 Urine Glucose (UA) Negative (NEGATIVE) 05/04/18 22:15 Urine Ketones Negative (NEGATIVE) 05/04/18 22:15 Urine Occult Blood 2+ (NEGATIVE) 05/04/18 22:15 Urine Nitrite Negative (NEGATIVE) 05/04/18 22:15 Urine Bilirubin Negative (NEGATIVE) 05/04/18 22:15 Urine Urobilinogen Normal (NORMAL) 05/04/18 22:15 Ur Leukocyte Esterase Negative (NEGATIVE) 05/04/18 22:15 Urine RBC 0-2 /HPF (NONE SEEN) 05/04/18 22:15 Urine WBC None seen /HPF (NONE SEEN) 05/04/18 22:15 Ur Squamous Epith Cells Few /HPF (NEGATIVE) 05/04/18 22:15 Urine Bacteria Negative /HPF (NEGATIVE) 05/04/18 22:15 Urine Mucus Few /HPF (NEGATIVE) 05/04/18 08:02 Ur Culture Indicated? No/not indicated 05/04/18 22:15 Stool Description Fob tube 05/06/18 01:55 Stl Occult Blood (IFOB) Negative (NEGATIVE) 05/06/18 01:55 - Plan (1) Diverticulitis large intestine Status: Acute Qualifiers: Diverticulitis bleeding: without bleeding Diverticulitis complication: without perforation or abscess Qualified Code(s): K57.32 - Diverticulitis of large intestine without perforation or abscess without bleeding Plan: IV ATBX. AM LABS, CXR THIS AM, CIPRO, ZOSYN FLAGYL AND STOOL STUDIES. LIQUID DIET, PAIN AND NAUSEA CONTROL. KUB Q AM
[2018-05-09] MEDS: DEMEROL INJ IVP PRN (20:19)
[2018-05-10] MEDS: NS + KCL 20 MEQ/L 1,000 ML IV SCH ×4 (03:35→18:32)
[2018-05-10] MEDS: FLAGYL IV PREMIX 500 MG BAG 500 MG/100 ML BAG IV SCH ×4 (03:36→20:58)
[2018-05-10 05:36] LABS: BASOPHILS # (AUTO) 0.1 X10^3/uL (0.0-0.1); BASOPHILS % (AUTO) 1.1 % (0.2-1.0); EOSINOPHILS # (AUTO) 0.8 x10^3/uL (0.0-0.2); EOSINOPHILS % (AUTO) 9.6 % (0.9-2.9); HEMATOCRIT 38.9 % (42.0-54.0); HEMOGLOBIN 13.4 g/dL (13.5-18.0); LYMPHOCYTES # (AUTO) 1.7 X10^3/uL (1.3-2.9); LYMPHOCYTES % (AUTO) 20.5 % (21.0-51.0); MEAN CORPUSCULAR HEMOGLOBIN 27.6 pg (27.0-34.0); MEAN CORPUSCULAR HGB CONC 34.4 g/dL (33.0-35.0); MEAN CORPUSCULAR VOLUME 80.2 fL (80.0-100.0); MEAN PLATELET VOLUME 7.9 fL (7.4-11.0); MONOCYTES # (AUTO) 0.7 x10^3/uL (0.3-0.8); MONOCYTES % (AUTO) 8.5 % (0.0-13.0); NEUTROPHILS % (AUTO) 60.3 % (42.0-75.0); PLATELET COUNT 297 X10^3/uL (150.0-450.0); RED BLOOD COUNT 4.85 X10^6/uL (4.7-6.0); RED CELL DISTRIBUTION WIDTH 14.8 % (11.6-16.5); WHITE BLOOD COUNT 8.4 X10^3/uL (3.6-10.0)
[2018-05-10 05:49] LABS: ALANINE AMINOTRANSFERASE 15 Units/L (12-78); ALBUMIN 2.8 g/dL (3.4-5.0); ALKALINE PHOSPHATASE 79 Units/L (46-116); ASPARTATE AMINO TRANSFERASE 24 Units/L (15-37); BLOOD UREA NITROGEN 9 mg/dL (7-18); CALCIUM 8.8 mg/dL (8.5-10.1); CARBON DIOXIDE 24.3 mmol/L (21-32); CHLORIDE 104 mmol/L (98-107); COR CA(FOR HYPOALB) 9.8 mg/dL (8.5-10.1); CREATININE 1.07 mg/dL (0.70-1.30); SODIUM 138 mmol/L (136-145); eGFR NON BLACK RACES > 60 (>60)
[2018-05-10] MEDS: ZOSYN VIAL 3.375 GRAMS 3.375 G in NS 100 ML IV + SPIKE MINIBAG* 100 ML IV SCH ×3 (06:25→22:30)
[2018-05-10] MEDS: NICOTINE PATCH TD SCH (09:25)
[2018-05-10] MEDS: ARTIFICIAL TEARS DROPS AFFEYE SCH ×4 (09:26→20:58)
[2018-05-10] MEDS: CHECK PATCH XX SCH ×2 (09:26→20:59)
[2018-05-10] MEDS: PROTONIX INJ 40 MG VIAL IVP SCH (09:26)
[2018-05-10] MEDS: CIPRO IV 400 MG PREMIX* 400 MG/200 ML IV.SOLN. IV SCH ×2 (09:26→21:37)
--- NOTE | 2018-05-10 13:08 | PCM.PROG ---
Progress Note - Progress Note for Day of Date of Exam: 05/10/18 - Subjective Subjective: 63 WM ER ADMISSION WITH ACUTE DIVERTICULITIS, CURRENTLY ON IV ZOSYN , ADDING FLAGYL, PT CO PAIN IMPROVED THIS, BUT CONTINUES LLQ TENDER ON EXAM, PT AMBULATORY WITHOUT ASSISTANCE. STOOL STUDIES. CONTINUE CLEAR LIQUIDS, PAIN CONTROL, CIPRO AND CONSULT DR PIERRE - Past Medical Family Social History Past Med/Fam/Surg Hx: No changes since H&P Allergies: Allergies codeine Allergy (Verified 05/04/18 07:06) - Review of Systems ROS: No change since H&P - Vital Signs and I&O's Vital Signs: Temperature 97.6 F Pulse Rate [Right Brachial] 77 Pulse Rate [Left Radial] 70 Pulse Rate 76 Respiratory Rate 20 Blood Pressure [Right Arm] 117/74 Blood Pressure [Left Arm] 152/87 Blood Pressure 182/84 O2 Sat by Pulse Oximetry 96 Intake and Output: Intake & Output 05/08/18 05/09/18 05/10/18 05/11/18 11:59 11:59 11:59 11:59 Intake Total 4340 / 4340 4190 / 4190 2470 / 2470 Output Total 3050 / 3050 1999 / 1999 3675 / 3675 Balance 1290 / 1290 2190 / 2190 -1205 / -1205 - Physical Exam Oriented: Normal Eyes: Normal Ear: Normal Nose: Normal Throat: Normal Respiratory: Diminished, Wheezes Cardiovascular: Normal : Normal Auscultation: Bowel Sounds: Decreased Tenderness: LUQ (soft abdomen with fullness LLQ, very tender and mild rebound , BS : hypoactive ..), LLQ, Mild Skin: Decreased Turgur Musculoskeletal: Normal Psychiatric: Normal Mood Description: Calm Affect: Angry Speech Pattern: Clear, Appropriate - Laboratory and Diagnostics Result Diagrams: 05/10/18 04:57 05/10/18 04:57 Labs: Laboratory WBC 8.4 X10^3/uL (3.6-10.0) 05/10/18 04:57 RBC 4.85 X10^6/uL (4.7-6.0) 05/10/18 04:57 Hgb 13.4 g/dL (13.5-18.0) L 05/10/18 04:57 Hct 38.9 % (42.0-54.0) L 05/10/18 04:57 MCV 80.2 fL (80.0-100.0) 05/10/18 04:57 MCH 27.6 pg (27.0-34.0) 05/10/18 04:57 MCHC 34.4 g/dL (33.0-35.0) 05/10/18 04:57 RDW 14.8 % (11.6-16.5) 05/10/18 04:57 Plt Count 297 X10^3/uL (150.0-450.0) 05/10/18 04:57 Plt Count Comment Adequate (ADEQUATE) 05/04/18 08:07 MPV 7.9 fL (7.4-11.0) 05/10/18 04:57 Neut % (Auto) 60.3 % (42.0-75.0) 05/10/18 04:57 Lymph % (Auto) 20.5 % (21.0-51.0) L 05/10/18 04:57 [place] % (Auto) 8.5 % (0.0-13.0) 05/10/18 04:57 Eos % (Auto) 9.6 % (0.9-2.9) H 05/10/18 04:57 Baso % (Auto) 1.1 % (0.2-1.0) H 05/10/18 04:57 Neut # (Auto) 5.0 x10^3/uL (2.2-4.8) H 05/10/18 04:57 Lymph # (Auto) 1.7 X10^3/uL (1.3-2.9) 05/10/18 04:57 [place] # (Auto) 0.7 x10^3/uL (0.3-0.8) 05/10/18 04:57 Eos # (Auto) 0.8 x10^3/uL (0.0-0.2) H 05/10/18 04:57 Baso # (Auto) 0.1 X10^3/uL (0.0-0.1) 05/10/18 04:57 Absolute Nucleated RBC 0.1 /100WBC 05/10/18 04:57 Total Counted 100 05/04/18 08:07 Neutrophils % (Manual) 84 % (39-76) H 05/04/18 08:07 Band Neutrophils % 7 % (0-10) 05/04/18 08:07 Lymphocytes % (Manual) 3 % (13-43) L 05/04/18 08:07 Monocytes % (Manual) 6 % (4-9) 05/04/18 08:07 Plt Morphology Comment Normal (NORMAL) 05/04/18 08:07 RBC Morphology Normal (NORMAL) 05/04/18 08:07 Sodium 138 mmol/L (136-145) 05/10/18 04:57 Corrected Sodium TNP 05/10/18 04:57 Potassium 4.1 mmol/L (3.5-5.1) 05/10/18 04:57 Chloride 104 mmol/L (98-107) 05/10/18 04:57 Carbon Dioxide 24.3 mmol/L (21-32) 05/10/18 04:57 BUN 9 mg/dL (7-18) 05/10/18 04:57 Creatinine 1.07 mg/dL (0.70-1.30) 05/10/18 04:57 Est GFR (MDRD) Af Amer > 60 (>60) 05/10/18 04:57 Est GFR (MDRD) Non-Af > 60 (>60) 05/10/18 04:57 Glucose 103 mg/dL (65-99) H 05/10/18 04:57 Lactic Acid 0.9 mmol/L (0.4-2.0) 05/05/18 13:56 Calcium 8.8 mg/dL (8.5-10.1) 05/10/18 04:57 Corrected Calcium 9.8 mg/dL (8.5-10.1) 05/10/18 04:57 Total Bilirubin 0.30 mg/dL (0.2-1.0) 05/10/18 04:57 AST 24 Units/L (15-37) 05/10/18 04:57 ALT 15 Units/L (12-78) 05/10/18 04:57 Alkaline Phosphatase 79 Units/L (46-116) 05/10/18 04:57 Total Protein 7.0 g/dL (6.4-8.2) 05/10/18 04:57 Albumin 2.8 g/dL (3.4-5.0) L 05/10/18 04:57 Globulin 4.2 g/dL (2.5-4.5) 05/10/18 04:57 Albumin/Globulin Ratio 0.7 Ratio (1.1-2.1) L 05/10/18 04:57 Amylase 32 Units/L (25-115) 05/04/18 08:07 Lipase 101 Units/L (73-393) 05/04/18 08:07 Specimen Type Random urine 05/04/18 22:15 Urine Color Yellow (YELLOW) 05/04/18 22:15 Urine Appearance Clear (CLEAR) 05/04/18 22:15 Urine pH 5.0 (5.0 - 8.0) 05/04/18 22:15 Ur Specific [place] 1.015 (1.000-1.030) 05/04/18 22:15 Urine Protein Negative (NEGATIVE) 05/04/18 22:15 Urine Glucose (UA) Negative (NEGATIVE) 05/04/18 22:15 Urine Ketones Negative (NEGATIVE) 05/04/18 22:15 Urine Occult Blood 2+ (NEGATIVE) 05/04/18 22:15 Urine Nitrite Negative (NEGATIVE) 05/04/18 22:15 Urine Bilirubin Negative (NEGATIVE) 05/04/18 22:15 Urine Urobilinogen Normal (NORMAL) 05/04/18 22:15 Ur Leukocyte Esterase Negative (NEGATIVE) 05/04/18 22:15 Urine RBC 0-2 /HPF (NONE SEEN) 05/04/18 22:15 Urine WBC None seen /HPF (NONE SEEN) 05/04/18 22:15 Ur Squamous Epith Cells Few /HPF (NEGATIVE) 05/04/18 22:15 Urine Bacteria Negative /HPF (NEGATIVE) 05/04/18 22:15 Urine Mucus Few /HPF (NEGATIVE) 05/04/18 08:02 Ur Culture Indicated? No/not indicated 05/04/18 22:15 Stool Description Fob tube 05/06/18 01:55 Stl Occult Blood (IFOB) Negative (NEGATIVE) 05/06/18 01:55 - Plan (1) Diverticulitis large intestine Status: Acute Qualifiers: Diverticulitis bleeding: without bleeding Diverticulitis complication: without perforation or abscess Qualified Code(s): K57.32 - Diverticulitis of large intestine without perforation or abscess without bleeding Plan: IV ATBX. AM LABS, CXR THIS AM, CIPRO, ZOSYN FLAGYL AND STOOL STUDIES. LIQUID DIET, PAIN AND NAUSEA CONTROL. DEREK Soto AM
[2018-05-11] MEDS: FLAGYL IV PREMIX 500 MG BAG 500 MG/100 ML BAG IV SCH ×2 (03:45→08:27)
[2018-05-11 05:26] LABS: BASOPHILS # (AUTO) 0.1 X10^3/uL (0.0-0.1); BASOPHILS % (AUTO) 1.1 % (0.2-1.0); EOSINOPHILS # (AUTO) 0.7 x10^3/uL (0.0-0.2); EOSINOPHILS % (AUTO) 9.3 % (0.9-2.9); HEMOGLOBIN 13.5 g/dL (13.5-18.0); LYMPHOCYTES # (AUTO) 1.7 X10^3/uL (1.3-2.9); LYMPHOCYTES % (AUTO) 21.7 % (21.0-51.0); MEAN CORPUSCULAR HGB CONC 34.8 g/dL (33.0-35.0); MEAN CORPUSCULAR VOLUME 80.5 fL (80.0-100.0); MEAN PLATELET VOLUME 7.8 fL (7.4-11.0); MONOCYTES # (AUTO) 0.7 x10^3/uL (0.3-0.8); NEUTROPHILS # (AUTO) 4.6 x10^3/uL (2.2-4.8); NEUTROPHILS % (AUTO) 58.9 % (42.0-75.0); PLATELET COUNT 293 X10^3/uL (150.0-450.0); RED BLOOD COUNT 4.84 X10^6/uL (4.7-6.0); RED CELL DISTRIBUTION WIDTH 14.7 % (11.6-16.5); WHITE BLOOD COUNT 7.8 X10^3/uL (3.6-10.0)
[2018-05-11 05:50] LABS: ALANINE AMINOTRANSFERASE 18 Units/L (12-78); ALBUMIN 2.9 g/dL (3.4-5.0); ALKALINE PHOSPHATASE 71 Units/L (46-116); ASPARTATE AMINO TRANSFERASE 22 Units/L (15-37); BLOOD UREA NITROGEN 7 mg/dL (7-18); CALCIUM 8.6 mg/dL (8.5-10.1); CHLORIDE 105 mmol/L (98-107); COR CA(FOR HYPOALB) 9.5 mg/dL (8.5-10.1); CREATININE 1.11 mg/dL (0.70-1.30); SODIUM 140 mmol/L (136-145); TOTAL PROTEIN 6.9 g/dL (6.4-8.2); eGFR NON BLACK RACES > 60 (>60)
[2018-05-11] MEDS: ZOSYN VIAL 3.375 GRAMS 3.375 G in NS 100 ML IV + SPIKE MINIBAG* 100 ML IV SCH (06:15)
--- NOTE | 2018-05-11 07:21 | RAD ---
HISTORY: Abdominal pain Study: KUB Comparison: 05/08/2018 Findings: The abdominal gas pattern is nonspecific and nonobstructive. No abnormal masses or abnormal calcifica tions are identified. The regional skeleton is intact. IMPRESSION: Unremarkable KUB Reported By:
[2018-05-11] MEDS: NS + KCL 20 MEQ/L 1,000 ML IV SCH ×2 (07:28)
--- NOTE | 2018-05-11 08:10 | DR.PROGNOT ---
Hospital Progress Notes - Progress Note for Day of: Progress Note Date: 05/11/18 - Chief Complaint Chief Complaint: only mild LLQ pain . no nausea or vomiting . CBC and CMP normal . afebrile . - Past Medical Family Social History Past Med/Fam/Surg Hx: No changes since H&P Allergies: Allergies codeine Allergy (Verified 05/04/18 07:06) - Review Of Systems ROS: No change since H&P - Vital Signs Vital Signs: Temperature 98.8 F Pulse Rate [Right Brachial] 75 Pulse Rate [Left Radial] 70 Pulse Rate 76 Respiratory Rate 23 Blood Pressure [Right Arm] 129/66 Blood Pressure [Left Arm] 152/87 Blood Pressure 182/84 O2 Sat by Pulse Oximetry 96 - Physical Exam Oriented: Normal Eyes: Normal Ear: Normal Nose: Normal Throat: Normal Respiratory: Diminished, Wheezes Cardiovascular: Normal : Normal GI:Auscultation: Normal GI:Palpation: Normal GI: Tenderness: LUQ (soft abdomen , mild to moderate tenderness LLQ , no rebound .BS+), LLQ, Mild Skin: Decreased Turgur Musculoskeletal: Normal Psychiatric: Normal Mood Description: Calm Affect: Angry Speech Pattern: Clear, Appropriate - Laboratory and Diagnostics Result Diagrams: 05/11/18 04:56 05/11/18 04:56 Labs: Laboratory WBC 7.8 X10^3/uL (3.6-10.0) 05/11/18 04:56 RBC 4.84 X10^6/uL (4.7-6.0) 05/11/18 04:56 Hgb 13.5 g/dL (13.5-18.0) 05/11/18 04:56 Hct 39.0 % (42.0-54.0) L 05/11/18 04:56 MCV 80.5 fL (80.0-100.0) 05/11/18 04:56 MCH 28.0 pg (27.0-34.0) 05/11/18 04:56 MCHC 34.8 g/dL (33.0-35.0) 05/11/18 04:56 RDW 14.7 % (11.6-16.5) 05/11/18 04:56 Plt Count 293 X10^3/uL (150.0-450.0) 05/11/18 04:56 Plt Count Comment Adequate (ADEQUATE) 05/04/18 08:07 MPV 7.8 fL (7.4-11.0) 05/11/18 04:56 Neut % (Auto) 58.9 % (42.0-75.0) 05/11/18 04:56 Lymph % (Auto) 21.7 % (21.0-51.0) 05/11/18 04:56 [place] % (Auto) 9.0 % (0.0-13.0) 05/11/18 04:56 Eos % (Auto) 9.3 % (0.9-2.9) H 05/11/18 04:56 Baso % (Auto) 1.1 % (0.2-1.0) H 05/11/18 04:56 Neut # (Auto) 4.6 x10^3/uL (2.2-4.8) 05/11/18 04:56 Lymph # (Auto) 1.7 X10^3/uL (1.3-2.9) 05/11/18 04:56 [place] # (Auto) 0.7 x10^3/uL (0.3-0.8) 05/11/18 04:56 Eos # (Auto) 0.7 x10^3/uL (0.0-0.2) H 05/11/18 04:56 Baso # (Auto) 0.1 X10^3/uL (0.0-0.1) 05/11/18 04:56 Absolute Nucleated RBC 0.0 /100WBC 05/11/18 04:56 Total Counted 100 05/04/18 08:07 Neutrophils % (Manual) 84 % (39-76) H 05/04/18 08:07 Band Neutrophils % 7 % (0-10) 05/04/18 08:07 Lymphocytes % (Manual) 3 % (13-43) L 05/04/18 08:07 Monocytes % (Manual) 6 % (4-9) 05/04/18 08:07 Plt Morphology Comment Normal (NORMAL) 05/04/18 08:07 RBC Morphology Normal (NORMAL) 05/04/18 08:07 Sodium 140 mmol/L (136-145) 05/11/18 04:56 Corrected Sodium TNP 05/11/18 04:56 Potassium 4.1 mmol/L (3.5-5.1) 05/11/18 04:56 Chloride 105 mmol/L (98-107) 05/11/18 04:56 Carbon Dioxide 26.0 mmol/L (21-32) 05/11/18 04:56 BUN 7 mg/dL (7-18) 05/11/18 04:56 Creatinine 1.11 mg/dL (0.70-1.30) 05/11/18 04:56 Est GFR (MDRD) Af Amer > 60 (>60) 05/11/18 04:56 Est GFR (MDRD) Non-Af > 60 (>60) 05/11/18 04:56 Glucose 108 mg/dL (65-99) H 05/11/18 04:56 Lactic Acid 0.9 mmol/L (0.4-2.0) 05/05/18 13:56 Calcium 8.6 mg/dL (8.5-10.1) 05/11/18 04:56 Corrected Calcium 9.5 mg/dL (8.5-10.1) 05/11/18 04:56 Total Bilirubin 0.20 mg/dL (0.2-1.0) 05/11/18 04:56 AST 22 Units/L (15-37) 05/11/18 04:56 ALT 18 Units/L (12-78) 05/11/18 04:56 Alkaline Phosphatase 71 Units/L (46-116) 05/11/18 04:56 Total Protein 6.9 g/dL (6.4-8.2) 05/11/18 04:56 Albumin 2.9 g/dL (3.4-5.0) L 05/11/18 04:56 Globulin 4.0 g/dL (2.5-4.5) 05/11/18 04:56 Albumin/Globulin Ratio 0.7 Ratio (1.1-2.1) L 05/11/18 04:56 Amylase 32 Units/L (25-115) 05/04/18 08:07 Lipase 101 Units/L (73-393) 05/04/18 08:07 Specimen Type Random urine 05/04/18 22:15 Urine Color Yellow (YELLOW) 05/04/18 22:15 Urine Appearance Clear (CLEAR) 05/04/18 22:15 Urine pH 5.0 (5.0 - 8.0) 05/04/18 22:15 Ur Specific [place] 1.015 (1.000-1.030) 05/04/18 22:15 Urine Protein Negative (NEGATIVE) 05/04/18 22:15 Urine Glucose (UA) Negative (NEGATIVE) 05/04/18 22:15 Urine Ketones Negative (NEGATIVE) 05/04/18 22:15 Urine Occult Blood 2+ (NEGATIVE) 05/04/18 22:15 Urine Nitrite Negative (NEGATIVE) 05/04/18 22:15 Urine Bilirubin Negative (NEGATIVE) 05/04/18 22:15 Urine Urobilinogen Normal (NORMAL) 05/04/18 22:15 Ur Leukocyte Esterase Negative (NEGATIVE) 05/04/18 22:15 Urine RBC 0-2 /HPF (NONE SEEN) 05/04/18 22:15 Urine WBC None seen /HPF (NONE SEEN) 05/04/18 22:15 Ur Squamous Epith Cells Few /HPF (NEGATIVE) 05/04/18 22:15 Urine Bacteria Negative /HPF (NEGATIVE) 05/04/18 22:15 Urine Mucus Few /HPF (NEGATIVE) 05/04/18 08:02 Ur Culture Indicated? No/not indicated 05/04/18 22:15 Stool Description Fob tube 05/06/18 01:55 Stl Occult Blood (IFOB) Negative (NEGATIVE) 05/06/18 01:55 - Assessment and Plan 1: subsiding acute sigmoid diverticulitis , improving with ATB. could be D/C on oral ATB and stay on liquid diet for few more days . will follow as OP - Problem Patient Problems: Patient Problems Diverticulitis large intestine (Acute) K57.32
[2018-05-11] MEDS: ARTIFICIAL TEARS DROPS AFFEYE SCH (08:27)
[2018-05-11] MEDS: CIPRO IV 400 MG PREMIX* 400 MG/200 ML IV.SOLN. IV SCH (08:27)
[2018-05-11] MEDS: CHECK PATCH XX SCH (08:29)
[2018-05-11] MEDS: NICOTINE PATCH TD SCH (08:29)
[2018-05-11] MEDS: PROTONIX INJ 40 MG VIAL IVP SCH (08:30)
[2018-05-11] MEDS ORDERED: MILK OF MAGNESIA PO SCH (09:00)
[2018-05-11 12:10] VITALS: BP 120/68
[2018-05-11] MEDS ORDERED: COLACE CAP 100 MG PO SCH (21:00)
== END 2018-05-11 12:10 | disposition home or self-care (01) | DRG 392 ==
LOC: ER 07:16 → MED/SURG 09:25
PROVIDERS: ADMIT Internal Medicine; ATTEND Internal Medicine
DX: E87.1 Hypo-osmolality and hyponatremia; R53.1 Weakness; R10.84 Generalized abdominal pain; D72.828 Other elevated white blood cell count; K57.32 Diverticulitis of large intestine without perforation or abscess without bleeding
CPT/HCPCS: 36415; 71010; 71045; 74000; 74018; 74176; 74177; 80053; 81001; 82150; 82270; 83605; 83690; 85025; 94760; 96365; 96374; 99231; 99283; 99284; A4222; C9113; S0030; J0744; J2175; J2405; J2543; J3480; J7030; J7050

== ENCOUNTER 2022-03-23 21:25 | Inpatient (IN) ==
[2022-03-23] MEDS ORDERED: NS 1,000 ML IV 1,000 ML ONE (22:28)
--- NOTE | 2022-03-23 22:31 | DR.N/VMALE ---
HPI Time Seen Time Seen by Provider: 03/23/22 22:23 Primary Care Physician Primary Care Physician: JULIA HPI Comment HPI Comment: PATIENT IS 67YR OLD MALE INN ER WITH NAUSEA, VOMITING, DIARRHEA AND DIZZINESS TIMES 2 DAYS. NO FEVER OR DYSURIA. WORSE TODAY. NO DYSURIA OR FEVER. DENIES CONTACT EXPOSURE. NO RECENT TRAVEL Complaints Chief Complaint Doctors Comments: DIZZINESS, NAUSEA, VOMITING AND DIARRHEA TIMES 22 DAYS. Chief Complaint:: C/O N/V/D WITH LIGHTHEADEDNESS Self Treatment fo Chief Complaint: NONE COVID-19 Coronavirus risk:travel/contact w/high risk person: No Has patient experienced Coronavirus symptoms: No Reviewed Nurses Notes Reviewed: Yes Source History Provided: Patient Mode of Arrival Mode of Arrival: Ambulatory Timing Onset of Chief Complaint: 03/21/22 Context Onset: Spontaneous Recent: None History of: None Quality Quality: Food Particles Associated Signs and Symptoms Abdominal Pain Quality: Cramping Abdominal Pain Location: Diffuse Symptoms: Abdominal Pain and Diarrhea PMH PMH Past Medical History: Yes Past Medical History: Arthritis and Hypertension Past Surgical History: Yes Surgical History: Other Family History History of Family Medical Conditions: Yes Family Medical History: Diabetes Mellitus Social History Alcohol Use: None Do you use any recreational Drugs:: No Lives With: Spouse Travel Risk Coronavirus risk:travel/contact w/high risk person: No Has patient experienced Coronavirus symptoms: No Infectious screening Have you traveled outside the country in the last 6 months?: No Isolation: Standard ROS Review of Systems Constitutional: No Symptoms Reported, See HPI, Weakness and Fatigue; negative Fever Eyes: No Symptoms Reported, See HPI and Blurred Vision ENTM: No Symptoms Reported, See HPI and Mouth Pain; negative Nose Discharge and Nose Congestion Respiratoy: No Symptoms Reported and See HPI; negative Moist Cough, Short of Breath and Wheezing Cardiovascular: No Symptoms Reported and See HPI; negative Chest Pain Gastrointestinal/Abdominal: See HPI, Abdominal Pain, Diarrhea and Vomiting; negative Nausea Genitourinary: No Symptoms Reported and See HPI Neurological: See HPI, Headache, Weakness and Dizziness Musculoskeletal: No Symptoms Reported, See HPI and Muscle Pain Integumentary: See HPI and Dryness Hematologic/Lymphatic: No Symptoms Reported and See HPI Endocrine: No Symptoms Reported and See HPI; negative Increased Thirst and Increased Urine Psychiatric: No Symptoms Reported and See HPI All Other Systems: Reviewed and Negative PE Vital Signs Vitals: Temperature 98.1 F Pulse Rate 94 Respiratory Rate 16 Blood Pressure [Right Arm] 88/48 Blood Pressure 99/55 O2 Sat by Pulse Oximetry 95 General Limitations: No Limitations General Appearance: Alert and In No Apparent Distress Head Head Exam: Normal Inspection and Atraumatic Eyes Eye exam: Normal Appearance and PERRL; negative Scleral Icterus and Conjunctival Injection ENT ENT Exam: Normal Exam, Normal Oropharynx, Normal External Ear Exam and TM's Normal Bilaterally Neck Neck Exam: Normal Inspection and Trachea Midline; negative Tenderness Chest Chest Inspection: Normal Inspection and Symmetric Chest Wall Rise; negative Tenderness Respiratory Respiratory Exam: Normal Lung Sounds Bilat; negative Accessory Muscle Use, Chest Wall Tenderness and Respiratory Distress Respiratory Exam: Bilateral: Clear to Auscultation Cardiovascular Cardiovascular Exam: Regular Rate, Normal Rhythm and Normal Heart Sounds; negative Systolic Murmur and Diastolic Murmur Abdominal Exam Abdominal Exam: Normal Bowel Sounds, Soft and Tenderness Abdominal Tenderness: Diffuse Rectal Rectal Exam: Deferred Exam: Male: Deferred Extremities Extremities Exam: Normal Inspection and Normal Capillary Refill Back Back Exam: Normal Inspection and (R) CVA Tenderness; negative (L) CVA Tenderness Neurologic Neurological Exam: Alert and Oriented X3; negative Motor Sensory Deficit Psychiatric Psychiatric Exam: Normal Affect and Normal Mood Skin Skin Exam: Dry MDM Differential Diagnosis Differential Diagnosis: Considerations may Include:: Bowel Obstruction, Cholecystitis, Gastritis, Gastroenteritis, Inflammatory BD, Pancreatitis, PUD and Urinary Tract Infection COURSE Treatment Treatment: SEE ORDERS DONE WHILE PATIENT WAS IN ER. Consultation Consultation Comments: DISCUSSED PATIENT WITH DR. WILSON. HE WILL ADMIT PATIENT. Education/Counseling Education/Counseling: Patient Educated On: Diagnosis and Needs for Follow Up ROR Labs Reviewed Laboratory Results Reviewed?: Yes Result Diagrams: 03/25/22 04:24 03/25/22 08:52 Laboratory: 03/24/22 02:00 Urine,Catheterized Urine Culture - Final 03/24/22 02:13 Stool Stool Culture - Final Salmonella Species 03/24/22 02:13 Stool - Final WBC 10.6 X10^3/uL (3.6-10.0) H 03/23/22 22:34 RBC 5.12 X10^6/uL (4.7-6.0) 03/23/22 22:34 Hgb 13.9 g/dL (13.5-18.0) 03/23/22 22:34 Hct 40.6 % (42.0-54.0) L 03/23/22:34 MCV 79.3 fL (80.0-100.0) L 03/23/22:34 MCH 27.2 pg (27.0-34.0) 03/23/22: MCHC 34.3 g/dL (33.0-35.0) 03/23/22: RDW 15.4 % (11.6-16.5) 03/23/22: Plt Count 221 X10^3/uL (150.0-450.0) 03/23/22:34 MPV 8.9 fL (7.4-11.0) 03/23/22: Neut % (Auto) 85.6 % (42.0-75.0) H 03/23/22: Lymph % (Auto) 6.7 % (21.0-51.0) L 03/23/22: [place] % (Auto) 7.3 % (0.0-13.0) 03/23/22: Eos % (Auto) 0.0 % (0.9-2.9) L 03/23/22:34 Baso % (Auto) 0.4 % (0.2-1.0) 03/23/22: Neut # (Auto) 9.1 x10^3/uL (2.2-4.8) H 03/23/22: Lymph # (Auto) 0.7 X10^3/uL (1.3-2.9) L 03/23/22: [place] # (Auto) 0.8 x10^3/uL (0.3-0.8) 03/23/22: Eos # (Auto) 0.0 x10^3/uL (0.0-0.2) 03/23/22: Baso # (Auto) 0.0 X10^3/uL (0.0-0.1) 03/23/22: Absolute Nucleated RBC 0.1 /100WBC 03/23/22:34 Sodium 127 mmol/L (136-145) L 03/23/22: Corrected Sodium 132 mmol/L (136-145) L 05/16/22 22:34 Potassium 4.1 mmol/L (3.5-5.1) 03/23/22 22:34 Chloride 90 mmol/L (98-107) L 03/23/22 22:34 Carbon Dioxide 16.4 mmol/L (21-32) L 03/23/22 22:34 BUN 40 mg/dL (7-18) H 03/23/22 22:34 Creatinine 5.43 mg/dL (0.70-1.30) H 03/23/22 22:34 Est GFR (MDRD) Af Amer 14 (>60) L 03/23/22 22:34 Est GFR (MDRD) Non-Af 11 (>60) L 03/23/22 22:34 Glucose 316 mg/dL (65-99) H 03/23/22 22:34 Calcium 8.1 mg/dL (8.5-10.1) L 03/23/22 22:34 Corrected Calcium TNP 03/23/22 22:34 Total Bilirubin 0.40 mg/dL (0.2-1.0) 03/23/22 22:34 AST 31 Units/L (15-37) 03/23/22 22:34 ALT 23 Units/L (12-78) 03/23/22 22:34 Alkaline Phosphatase 91 Units/L (46-116) 03/23/22 22:34 B-Natriuretic Peptide 19.5 pg/mL (0-79) 03/23/22 22:34 Total Protein 8.5 g/dL (6.4-8.2) H 03/23/22 22:34 Albumin 3.6 g/dL (3.4-5.0) 03/23/22 22:34 Globulin 4.9 g/dL (2.5-4.5) H 03/23/22 22:34 Albumin/Globulin Ratio 0.7 Ratio (1.1-2.1) L 03/23/22 22:34 Amylase 25 Units/L (25-115) 03/23/22 22:34 Lipase 159 Units/L (73-393) 03/23/22 22:34 Specimen Type Catherized urine 03/24/22 02:00 Urine Color Yellow (YELLOW) 03/24/22 02:00 Urine Appearance Slightly hazy (CLEAR) 03/24/22 02:00 Urine pH 5.0 (5.0 - 8.0) 03/24/22 02:00 Ur Specific [place] 1.030 (1.000-1.030) 03/24/22 02:00 Urine Protein 3+ (NEGATIVE) 03/24/22 02:00 Urine Glucose (UA) Negative (NEGATIVE) 03/24/22 02:00 Urine Ketones 1+ (NEGATIVE) 03/24/22 02:00 Urine Blood 2+ (NEGATIVE) 03/24/22 02:00 Urine Nitrite Negative (NEGATIVE) 03/24/22 02:00 Urine Bilirubin Negative (NEGATIVE) 03/24/22 02:00 Urine Urobilinogen Normal (NORMAL) 03/24/22 02:00 Ur Leukocyte Esterase Negative (NEGATIVE) 03/24/22 02:00 Urine RBC 3-5 /HPF (0-3) A 03/24/22 02:00 Urine WBC 0-2 /HPF (0-5) 03/24/22 02:00 Ur Squamous Epith Cells Few /HPF (NEGATIVE) 03/24/22 02:00 Urine Bacteria 2+ /HPF (NEGATIVE) 03/24/22 02:00 Hyaline Casts Many /LPF (NEGATIVE) 03/24/22 02:00 Ur Culture Indicated? Yes/culture set up 03/24/22 02:00 Stool Description 300cc liq/muc green 03/24/22 02:13 Stool Description 300cc liq/muc green 03/24/22 02:13 Stl Occult Blood (IFOB) Positive (NEGATIVE) A 03/24/22 02:13 Stool for White Cells Positive (NEGATIVE) A 03/24/22 02:13 Stl C. diff Tox B Gene Negative (NEGATIVE) 03/24/22 02:13 Stl C. diff [id number] Presumptive negative (NEGATIVE) 03/24/22 02:13 Stool H. pylori Ag Negative (NEGATIVE) 03/24/22 02:13 SARS-CoV-2 (PCR) Negative (NEGATIVE) 03/24/22 00:56 Cryptosporid parvum Ag Negative (NEGATIVE) 03/24/22 02:13 Giardia lamblia Ag Negative (NEGATIVE) 03/24/22 02:13 XRAY XRAY Interpreted by: Radiologist (REPORT NOTED.) and Self Opioid Opioid Risk Tool Age (Emeterio box if 16-45): No History of Preadolescent Sexual Abuse: No Total: 0 Total Score Risk Category: Low Risk Copyright: Emeterio NORMAN predicting aberrant behaviors Diagnosis Discharge Problem: Partial small bowel obstruction, Colitis, Dehydration, Renal insufficiency, Pulmonary nodule Abdominal pain Qualifiers: Abdominal location: generalized Qualified Code(s): R10.84 - Generalized abdomi nal pain Diarrhea Qualifiers: Diarrhea type: unspecified type Qualified Code(s): R19.7 - Diarrhea, unspecified UTI (urinary tract infection) Qualifiers: Urinary tract infection type: site unspecified Hematuria presence: with hematuria Qualified Code(s): N39.0 - Urinary tract infection, site not specified Instructions Forms: Excuse From Work or School Precautions for COVID19 [facility] Social Distancing
[2022-03-23 22:39] LABS: BASOPHILS % (AUTO) 0.4 % (0.2-1.0); HEMATOCRIT 40.6 % (42.0-54.0); HEMOGLOBIN 13.9 g/dL (13.5-18.0); LYMPHOCYTES # (AUTO) 0.7 X10^3/uL (1.3-2.9); LYMPHOCYTES % (AUTO) 6.7 % (21.0-51.0); MEAN CORPUSCULAR HEMOGLOBIN 27.2 pg (27.0-34.0); MEAN CORPUSCULAR HGB CONC 34.3 g/dL (33.0-35.0); MEAN CORPUSCULAR VOLUME 79.3 fL (80.0-100.0); MEAN PLATELET VOLUME 8.9 fL (7.4-11.0); MONOCYTES # (AUTO) 0.8 x10^3/uL (0.3-0.8); MONOCYTES % (AUTO) 7.3 % (0.0-13.0); NEUTROPHILS # (AUTO) 9.1 x10^3/uL (2.2-4.8); NEUTROPHILS % (AUTO) 85.6 % (42.0-75.0); RED BLOOD COUNT 5.12 X10^6/uL (4.7-6.0); RED CELL DISTRIBUTION WIDTH 15.4 % (11.6-16.5); WHITE BLOOD COUNT 10.6 X10^3/uL (3.6-10.0)
[2022-03-23 22:51] LABS: ALANINE AMINOTRANSFERASE 23 Units/L (12-78); ALBUMIN 3.6 g/dL (3.4-5.0); ALKALINE PHOSPHATASE 91 Units/L (46-116); AMYLASE 25 Units/L (25-115); ASPARTATE AMINO TRANSFERASE 31 Units/L (15-37); BLOOD UREA NITROGEN 40 mg/dL (7-18); CALCIUM 8.1 mg/dL (8.5-10.1); CARBON DIOXIDE 16.4 mmol/L (21-32); CHLORIDE 90 mmol/L (98-107); COR NA(FOR HYPERGLY) 132 mmol/L (136-145); CREATININE 5.43 mg/dL (0.70-1.30); LIPASE 159 Units/L (73-393); SODIUM 127 mmol/L (136-145); TOTAL PROTEIN 8.5 g/dL (6.4-8.2); eGFR NON BLACK RACES 11 (>60)
[2022-03-23] MEDS ORDERED: NS 1,000 ML IV 1,000 ML IV SCH (23:00)
--- NOTE | 2022-03-24 00:23 | CT ---
HISTORYC/O N/V/D WITH LIGHTHEADEDNESSSTUDYABDOMEN/PELVIS W/O CONCOMPARISONNovember 2018 chest and abdomen x-raysTECHNIQUESerial axial images were obtained from the lung bases to the pubic symphysis with the administration of intravenous contrast. Soft tissue, lung windows and bone window images were interpreted. Dose reduction techniques were utilized.FINDINGSThe heart is not enlarged. There is atherosclerotic disease scattered within the coronary vasculature including the left anterior descending artery, left circumflex and right main coronary artery. The lung bases reveals lobular contoured mass lesion within the right lower lobe measuring 1.6 centimeters.The liver is normal in size and reveals no focal lesions. There is diffuse fatty infiltration of the liver seen is diffuse low attenuation to the liver with focal areas of fatty sparing noted within the periphery of the right hepatic lobe. There is no intrahepatic biliary ductal dilatation or obvious common bile duct dilatation. The gallbladder is unremarkable. The gallbladder reveals no radiopaque gallstones. The spleen is unremarkable, revealing no focal lesions. The pancreas and adrenal glands revealed punctate pancreatic calcifications suggestive of the sequelae of previous remote chronic pancreatitis changes..The aorta and inferior vena cava are unremarkable. No significant para-aortic or retroperitoneal lymphadenopathy is identified.The kidneys are unremarkable. There are no radiopaque renal, ureteric or urinary bladder calculi. There is no hydronephrosis. There is no obstructive uropathy.Examination of the bowel, greater omentum and mesentery reveals acute focal colitis of the right hemicolon with thickening of the anderson and surrounding inflammatory changes. This involves the cecum as well to the level of the area just proximal to the hepatic flexure. Pericolonic inflammatory changes are noted in this area. There is fatty replacement within the anderson of the transverse colon consistent with the sequelae of remote previous colitis type changes. Mild acute colitis type changes are also seen of the distal transverse colon just proximal to the splenic flexure with pericolonic inflammatory changes and mild thickening of the anderson in this area of the left upper quadrant also noted. The right hemicolon colitis may be resulting in an early or partial small bowel obstruction. The appendix is unremarkable with no evidence for acute appendicitis. Examination of the pelvis reveals no pathologic masses or fluid collections. The urinary bladder is unremarkable. There are pelvic phleboliths. There are bilateral inguinal hernias with only herniation fat through the defect. The prostate gland is prominent in size measuring 4.3 x 5.6 centimeters.There is vacuum phenomenon within the sacroiliac joints.IMPRESSION1. 1.6 centimeter lobular pulmonary nodule within the right lower lobe. This is a concerning finding and warrants either three-month follow-up versus biopsy versus FDG PET uptake correlation.2. Acute colitis involving the right hemicolon and distal transverse colon just proximal of the splenic flexure with mild pericolonic inflammatory changes in both areas. Correlate clinically to exclude an infectious versus inflammatory etiology. This appears to be resulting in either an early versus partial small bowel obstruction.3. Diffuse fatty infiltration of the liver with geographic focal fatty areas of sparing.4. Enlarged prostate gland. Correlate clinically.Electronically signed by: Jen Joyner (March 24, 2022 00:22:55)
[2022-03-24 02:08] LABS: BILIRUBIN,URINE NEGATIVE (NEGATIVE); BLOOD/HEMOGLOBIN,URINE 2+ (NEGATIVE); GLUCOSE, URINE NEGATIVE (NEGATIVE); KETONES,URINE 1+ (NEGATIVE); LEUKOCYTE ESTERASE ,URINE NEGATIVE (NEGATIVE); NITRITES,URINE NEGATIVE (NEGATIVE); PROTEIN,URINE 3+ (NEGATIVE); UROBILINOGEN,URINE NORMAL (NORMAL)
[2022-03-24] MEDS ORDERED: NS 1,000 ML IV 1,000 ML IV ONE (02:18)
[2022-03-24] MEDS ORDERED: NS 1,000 ML IV 1,000 ML ONE (02:19)
[2022-03-24 02:21] LABS: APPEARANCE,URINE SLIGHTLY HAZY (CLEAR); COLOR,URINE YELLOW (YELLOW)
[2022-03-24 02:23] LABS: BACTERIA,URINE 2+ /HPF (NEGATIVE); HYALINE CASTS, URINE MANY /LPF (NEGATIVE); SQUAMOUS EPITHELIAL CELL,UR FEW /HPF (NEGATIVE)
[2022-03-24] MEDS ORDERED: ROCEPHIN 1 GRAM IV PREMIX 1 G/50 ML IV.SOLN. IV ONE ×2 (03:07→03:32)
[2022-03-24 03:13] LABS: CRYPTOSPORIDIUM PARVUM ANTIGEN NEGATIVE (NEGATIVE); GIARDIA LAMBLIA ANTIGEN NEGATIVE (NEGATIVE)
[2022-03-24] MEDS ORDERED: ZOFRAN INJ 4 MG VIAL IVP PRN (03:32)
[2022-03-24] MEDS: NS 1,000 ML IV 1,000 ML IV SCH ×2 (04:23→15:16)
[2022-03-24 05:26] LABS: BASOPHILS % (AUTO) 0.5 % (0.2-1.0); HEMATOCRIT 36.9 % (42.0-54.0); HEMOGLOBIN 12.7 g/dL (13.5-18.0); LYMPHOCYTES # (AUTO) 0.6 X10^3/uL (1.3-2.9); MEAN CORPUSCULAR HGB CONC 34.4 g/dL (33.0-35.0); MEAN CORPUSCULAR VOLUME 78.6 fL (80.0-100.0); MEAN PLATELET VOLUME 8.8 fL (7.4-11.0); MONOCYTES # (AUTO) 0.7 x10^3/uL (0.3-0.8); MONOCYTES % (AUTO) 10.4 % (0.0-13.0); NEUTROPHILS # (AUTO) 5.7 x10^3/uL (2.2-4.8); NEUTROPHILS % (AUTO) 80.1 % (42.0-75.0); RED BLOOD COUNT 4.69 X10^6/uL (4.7-6.0); RED CELL DISTRIBUTION WIDTH 15.1 % (11.6-16.5); WHITE BLOOD COUNT 7.2 X10^3/uL (3.6-10.0)
[2022-03-24 05:46] LABS: ALBUMIN 3.1 g/dL (3.4-5.0); CALCIUM 7.7 mg/dL (8.5-10.1); COR CA(FOR HYPOALB) 8.4 mg/dL (8.5-10.1); CREATININE 5.88 mg/dL (0.70-1.30); TOTAL PROTEIN 7.6 g/dL (6.4-8.2)
[2022-03-24] MEDS ORDERED: ZITHROMAX INJ 500 MG VIAL 500 MG in NS 250 ML IV 250 ML IV SCH (06:00)
[2022-03-24] MEDS ORDERED: NovoLIN R (or HumuLIN R) SUBCUT PRN (08:42)
[2022-03-24] MEDS ORDERED: LOVENOX INJ 30 MG SYR SC SCH (09:00)
[2022-03-24] MEDS ORDERED: PEPCID 20 MG VIAL 20 MG in NS 50 ML IV 50 ML IV SCH (09:00)
[2022-03-24] MEDS: FLAGYL IV PREMIX 500 MG BAG 500 MG/100 ML BAG IV SCH ×3 (09:01→21:25)
[2022-03-24] MEDS: CIPRO IV 400 MG PREMIX* 400 MG/200 ML IV.SOLN. IV SCH ×2 (09:18→20:22)
[2022-03-24 09:37] LABS: LACTIC ACID 2.4 mmol/L (0.4-2.0)
[2022-03-24 09:39] LABS: SERUM ACETONE NEGATIVE (NEGATIVE)
--- NOTE | 2022-03-24 11:43 | RAD ---
HISTORYDehydration SOBSTUDYPortable AP [id number]/[id number] normal heart size with no definite acute pulmonary infiltrate or pleural fluid. Prominent interstitial markings in the left base again noted consistent with chronic change.IMPRESSIONNo acute chest abnormality identified. See above.Electronically signed by: JALEESA NAJERA (March 24, 2022 11:42:44)
--- NOTE | 2022-03-24 12:18 | DR.H&P ---
H&P - History & Physical for Day of: H&P Date: 03/23/22 - Chief Complaint Chief Complaint: N/V, diarrhea - History of Present Illness History of Present Illness: Patient is a 67 year old white male who was admitted due to colitis and acute renal failure. Patient reports he has been sick at home for several days and over the past weekend. States he had a lot of nausea and vomiting over the weekend which has improved and almost resolved. Patient does report a lot of diarrhea. Patient states his stomach has not hurt terribly bad. Patient has a history of diverticulitis and has been hospitalized before for this. Denies fever chills, chest pain, sob. No other concerns at present. - Past Medical History Past Medical History: Hypertension, Arthritis - Past Surgical History Surgical History: Other - Family History Family Medical History: Diabetes Mellitus, Cancer, MD, Sudden Cardiac , Hypertension - Social History Alcohol Use: None Drug Use: None - Medications Home Medications: codeine Allergy (Verified 05/04/18 07:06) CONTINUE taking the following medications enalapril maleate 10 mg PO DAILY 03/24/22 [History] meloxicam 7.5 mg PO DAILY 03/24/22 [History] pantoprazole 40 mg PO DAILY 03/24/22 [History] potassium chloride 10 meq PO DAILY 03/24/22 [History] sertraline 50 mg PO DAILY 03/24/22 [History] simvastatin 40 mg PO DAILY 03/24/22 [History] - Review of Systems Constitutional: See HPI Eyes: See HPI ENT: See HPI Respiratory: See HPI Cardiovascular: See HPI Gastrointestinal: See HPI Genitourinary: See HPI Musculoskeletal: See HPI Skin: See HPI Neurological: See HPI - Physical Exam Vital Signs: Temperature 98.7 F Pulse Rate 98 Respiratory Rate 25 Blood Pressure [Right Arm] 88/48 Blood Pressure 82/52 O2 Sat by Pulse Oximetry 92 Oriented: Normal Eyes: Normal Ear: Normal Nose: Normal Throat: Normal Respiratory: Clear Throughout Cardiovascular: Tachycardia : Normal Auscultation: Bowel Sounds: Increased Palpation: Normal Tenderness: Diffuse, Mild Skin: Decreased [place] Musculoskeletal: Normal Psychiatric: Normal Mood Description: Calm Affect: Normal Speech Pattern: Clear, Appropriate - Assessment/Plan (1) SOUMYA (acute kidney injury) Status: Acute Plan: Admit. IV hydration. IV abx. Cultures pending. Renal ultrasound (2) Partial small bowel obstruction Status: Acute (3) Abdominal pain Status: Acute (4) Colitis Status: Acute (5) Diarrhea Status: Acute (6) Dehydration Status: Acute (7) Pulmonary nodule Status: Acute - Allergies Allergies/Adverse Reactions: Allergies Allergy/AdvReac Type Severity Reaction Status Date / Time codeine Allergy Verified 05/04/18 07:06
[2022-03-24] MEDS: ZOLOFT PO SCH (13:01)
[2022-03-24] MEDS: PROTONIX INJ 40 MG VIAL IVP SCH ×2 (13:01→21:25)
--- NOTE | 2022-03-24 15:01 | PCM.PROG ---
Progress Note - Subjective Subjective: Patient was admitted as per HPI. Patient reports improvement in symptoms. States he is feeling much better. Denies severe or increased abdominal pain. No new concerns at present. Continue IV hydration. Kidney failure likely related to dehydration. Labs and meds reviewed. ABx changed. - Past Medical Family Social History Past Med/Fam/Surg Hx: No changes since H&P Allergies: Allergies codeine Allergy (Verified 05/04/18 07:06) - Review of Systems ROS: No change since H&P - Vital Signs and I&O's Vital Signs: Temperature 98.4 F Pulse Rate 94 Respiratory Rate 22 Blood Pressure [Right Arm] 88/48 Blood Pressure 110/58 O2 Sat by Pulse Oximetry 96 Intake and Output: Intake & Output 03/21/22 03/22/22 03/23/22 03/24/22 23:59 23:59 23:59 23:59 Intake Total 350 / 350 Output Total 25 / Balance 325 / 325 - Physical Exam Oriented: Normal Eyes: Normal Ear: Normal Nose: Normal Throat: Normal Respiratory: Normal Cardiovascular: Tachycardia : Normal Auscultation: Bowel Sounds: Increased Palpation: Normal Tenderness: Diffuse, Mild Skin: Decreased [place]urgur Musculoskeletal: Normal Psychiatric: Normal Mood Description: Calm Affect: Normal Speech Pattern: Clear, Appropriate - Laboratory and Diagnostics Result Diagrams: 03/24/22 04:45 03/24/22 04:45 Labs: 03/24/22 02:13 Stool - Final Laboratory WBC 7.2 X10^3/uL (3.6-10.0) 03/24/22 04:45 RBC 4.69 X10^6/uL (4.7-6.0) L 03/24/22 04:45 Hgb 12.7 g/dL (13.5-18.0) L 03/24/22 04:45 Hct 36.9 % (42.0-54.0) L 03/24/22 04:45 MCV 78.6 fL (80.0-100.0) L 03/24/22 04:45 MCH 27.0 pg (27.0-34.0) 03/24/22 04:45 MCHC 34.4 g/dL (33.0-35.0) 03/24/22 04:45 RDW 15.1 % (11.6-16.5) 03/24/22 04:45 Plt Count 200 X10^3/uL (150.0-450.0) 03/24/22 04:45 MPV 8.8 fL (7.4-11.0) 03/24/22 04:45 Neut % (Auto) 80.1 % (42.0-75.0) H 03/24/22 04:45 Lymph % (Auto) 9.0 % (21.0-51.0) L 03/24/22 04:45 [place] % (Auto) 10.4 % (0.0-13.0) 03/24/22 04:45 Eos % (Auto) 0.0 % (0.9-2.9) L 03/24/22 04:45 Baso % (Auto) 0.5 % (0.2-1.0) 03/24/22 04:45 Neut # (Auto) 5.7 x10^3/uL (2.2-4.8) H 03/24/22 04:45 Lymph # (Auto) 0.6 X10^3/uL (1.3-2.9) L 03/24/22 04:45 [place] # (Auto) 0.7 x10^3/uL (0.3-0.8) 03/24/22 04:45 Eos # (Auto) 0.0 x10^3/uL (0.0-0.2) 03/24/22 04:45 Baso # (Auto) 0.0 X10^3/uL (0.0-0.1) 03/24/22 04:45 Absolute Nucleated RBC 0.0 /100WBC 03/24/22 04:45 Sodium 131 mmol/L (136-145) L 03/24/22 04:45 Corrected Sodium 134 mmol/L (136-145) L 03/24/22 04:45 Potassium 3.5 mmol/L (3.5-5.1) 03/24/22 04:45 Chloride 93 mmol/L (98-107) L 03/24/22 04:45 Carbon Dioxide 18.0 mmol/L (21-32) L 03/24/22 04:45 BUN 44 mg/dL (7-18) H 03/24/22 04:45 Creatinine 5.88 mg/dL (0.70-1.30) H 03/24/22 04:45 Est GFR (MDRD) Af Amer 12 (>60) L 03/24/22 04:45 Est GFR (MDRD) Non-Af 10 (>60) L 03/24/22 04:45 Glucose 216 mg/dL (65-99) H 03/24/22 04:45 POC Glucose (mg/dL) 221 mg/dL (65-99) H 03/24/22 10:53 Hemoglobin A1c 9.3 % 03/24/22 04:45 Lactic Acid 2.4 mmol/L (0.4-2.0) H 03/24/22 08:59 Calcium 7.7 mg/dL (8.5-10.1) L 03/24/22 04:45 Corrected Calcium 8.4 mg/dL (8.5-10.1) L 03/24/22 04:45 Total Bilirubin 0.30 mg/dL (0.2-1.0) 03/24/22 04:45 AST 21 Units/L (15-37) 03/24/22 04:45 ALT 17 Units/L (12-78) 03/24/22 04:45 Alkaline Phosphatase 81 Units/L (46-116) 03/24/22 04:45 B-Natriuretic Peptide 19.5 pg/mL (0-79) 03/23/22 22:34 Total Protein 7.6 g/dL (6.4-8.2) 03/24/22 04:45 Albumin 3.1 g/dL (3.4-5.0) L 03/24/22 04:45 Globulin 4.5 g/dL (2.5-4.5) 03/24/22 04:45 Albumin/Globulin Ratio 0.7 Ratio (1.1-2.1) L 03/24/22 04:45 Amylase 25 Units/L (25-115) 03/24/22 04:45 Lipase 159 Units/L (73-393) 03/23/22 22:34 Specimen Type Catherized urine 03/24/22 02:00 Urine Color Yellow (YELLOW) 03/24/22 02:00 Urine Appearance Slightly hazy (CLEAR) 03/24/22 02:00 Urine pH 5.0 (5.0 - 8.0) 03/24/22 02:00 Ur Specific [place] 1.030 (1.000-1.030) 03/24/22 02:00 Urine Protein 3+ (NEGATIVE) 03/24/22 02:00 Urine Glucose (UA) Negative (NEGATIVE) 03/24/22 02:00 Urine Ketones 1+ (NEGATIVE) 03/24/22 02:00 Urine Blood 2+ (NEGATIVE) 03/24/22 02:00 Urine Nitrite Negative (NEGATIVE) 03/24/22 02:00 Urine Bilirubin Negative (NEGATIVE) 03/24/22 02:00 Urine Urobilinogen Normal (NORMAL) 03/24/22 02:00 Ur Leukocyte Esterase Negative (NEGATIVE) 03/24/22 02:00 Urine RBC 3-5 /HPF (0-3) A 03/24/22 02:00 Urine WBC 0-2 /HPF (0-5) 03/24/22 02:00 Ur Squamous Epith Cells Few /HPF (NEGATIVE) 03/24/22 02:00 Urine Bacteria 2+ /HPF (NEGATIVE) 03/24/22 02:00 Hyaline Casts Many /LPF (NEGATIVE) 03/24/22 02:00 Ur Culture Indicated? Yes/culture set up 03/24/22 02:00 Stool Description 300cc liq/muc green 03/24/22 02:13 Stool Description 300cc liq/muc green 03/24/22 02:13 Stl Occult Blood (IFOB) Positive (NEGATIVE) A 03/24/22 02:13 Stool for White Cells Positive (NEGATIVE) A 03/24/22 02:13 Stl C. diff Tox B Gene Negative (NEGATIVE) 03/24/22 02:13 Stl C. diff [id number] Presumptive negative (NEGATIVE) 03/24/22 02:13 Stool H. pylori Ag Negative (NEGATIVE) 03/24/22 02:13 Acetone, Semi-Quant Negative (NEGATIVE) 03/24/22 08:59 SARS-CoV-2 (PCR) Negative (NEGATIVE) 03/24/22 00:56 Cryptosporid parvum Ag Negative (NEGATIVE) 03/24/22 02:13 Giardia lamblia Ag Negative (NEGATIVE) 03/24/22 02:13 - Plan (1) SOUMYA (acute kidney injury) Status: Acute Plan: Admit. IV hydration. IV abx. Cultures pending. Renal ultrasound (2) Partial small bowel obstruction Status: Acute (3) Abdominal pain Status: Acute (4) Colitis Status: Acute (5) Diarrhea Status: Acute (6) Dehydration Status: Acute (7) Pulmonary nodule Status: Acute
--- NOTE | 2022-03-24 16:00 | US ---
HISTORYRENAL FAILURESTUDYRENAL USCOMPARISONNone available.TECHNIQUEMultiple nelson scale and color flow Doppler images of the kidneys were obtained. The region of the urinary bladder was evaluated as well.FINDINGSThe right kidney is normal in echotexture and size. The right kidney measures 11 x 6 cm. No focal mass, hydronephrosis, or stones identified.The left kidney is unremarkable in its echotexture and size. The left kidney measures 11 x 6 cm. No focal mass, hydronephrosis, or stone can be seen within the left kidney. The bladder is somewhat small but otherwise unremarkable appears.IMPRESSIONUnremarkable evaluation of the kidneys.Electronically signed by: DESMOND KEARNEY III (March 24, 2022 15:59:44)
[2022-03-24] MEDS ORDERED: SNACK - Diabetic Appropriate PO SCH (20:00)
[2022-03-24 21:13] VITALS: BMI 36.1
[2022-03-25] MEDS: NS 1,000 ML IV 1,000 ML IV SCH ×2 (01:30→10:10)
[2022-03-25] MEDS ORDERED: ROCEPHIN VIAL 1 GRAM 1 G in NS 100 ML IV 100 ML IV SCH (03:00)
[2022-03-25] MEDS: FLAGYL IV PREMIX 500 MG BAG 500 MG/100 ML BAG IV SCH ×3 (03:15→15:04)
[2022-03-25 04:42] LABS: BASOPHILS % (AUTO) 0.5 % (0.2-1.0); EOSINOPHILS % (AUTO) 0.2 % (0.9-2.9); HEMATOCRIT 35.6 % (42.0-54.0); LYMPHOCYTES # (AUTO) 0.7 X10^3/uL (1.3-2.9); LYMPHOCYTES % (AUTO) 9.8 % (21.0-51.0); MEAN CORPUSCULAR HEMOGLOBIN 26.5 pg (27.0-34.0); MEAN CORPUSCULAR HGB CONC 33.8 g/dL (33.0-35.0); MEAN CORPUSCULAR VOLUME 78.5 fL (80.0-100.0); MEAN PLATELET VOLUME 8.7 fL (7.4-11.0); MONOCYTES # (AUTO) 0.9 x10^3/uL (0.3-0.8); MONOCYTES % (AUTO) 11.7 % (0.0-13.0); NEUTROPHILS % (AUTO) 77.8 % (42.0-75.0); RED BLOOD COUNT 4.54 X10^6/uL (4.7-6.0); RED CELL DISTRIBUTION WIDTH 15.3 % (11.6-16.5); WHITE BLOOD COUNT 7.7 X10^3/uL (3.6-10.0)
[2022-03-25 04:47] LABS: LACTIC ACID 0.8 mmol/L (0.4-2.0)
[2022-03-25 05:11] LABS: CALCIUM 7.1 mg/dL (8.5-10.1); CARBON DIOXIDE 18.8 mmol/L (21-32); COR CA(FOR HYPOALB) 7.9 mg/dL (8.5-10.1); CREATININE 8.62 mg/dL (0.70-1.30); TOTAL PROTEIN 7.1 g/dL (6.4-8.2)
[2022-03-25] MEDS: PROTONIX INJ 40 MG VIAL IVP SCH (08:21)
[2022-03-25] MEDS: ZOLOFT PO SCH (08:22)
[2022-03-25] MEDS ORDERED: ZITHROMAX INJ 500 MG VIAL 500 MG in NS 250 ML IV 250 ML IV SCH (09:00)
[2022-03-25] MEDS ORDERED: CIPRO IV 200 MG PREMIX* 200 MG/100 ML BAG IV SCH (09:00)
[2022-03-25] MEDS ORDERED: ZOCOR TAB 40 MG PO SCH (09:00)
[2022-03-25 09:36] LABS: ALBUMIN 3.1 g/dL (3.4-5.0); CARBON DIOXIDE 18.9 mmol/L (21-32); COR CA(FOR HYPOALB) 7.7 mg/dL (8.5-10.1); CREATININE 9.01 mg/dL (0.70-1.30); TOTAL PROTEIN 7.4 g/dL (6.4-8.2)
[2022-03-25 16:06] VITALS: BP 112/61
== END 2022-03-25 16:15 | disposition short-term general hospital (02) | DRG 683 ==
LOC: ER 21:25 → ICU 03-24 03:08
PROVIDERS: ADMIT Family Medicine; ATTEND Internal Medicine